=== PATIENT | female | born 1935 | race Caucasian/White ===

== ENCOUNTER 2016-04-16 08:51 | Emergency (ER) | payer MEDICARE, BC ==
[2016-04-16] MEDS ORDERED: ASPIRIN 81 MG TAB.CHEW PO ONE (09:22)
[2016-04-16] MEDS ORDERED: ASPIRIN 81 MG TAB.CHEW ONE (09:35)
[2016-04-16 09:37] LABS: Hematocrit 34.4 % (37.0-47.0); Hemoglobin 11.1 gm/dL (12.5-16.0); Mean Cell Volume 89.6 fl (78-100); Mean Corpuscular Hemoglobin 28.9 pg (27-31); Mean Corpuscular Hgb Conc 32.3 g/dl (32-36); Mean Platelet Volume 10.9 fl (6.0-9.5); Neutrophil # 3.6 K/mm3 (1.3-6.0); Neutrophil % 62.7 % (42-75.0); Platelet Count 213 K/mm3 (150-450); Red Blood Count 3.84 M/mm3 (4.2-5.4); Red Cell Distribution Width 13.1 % (11.5-14.0); White Blood Count 5.8 K/mm3 (4.0-10.5)
[2016-04-16 09:47] LABS: Prothrombin Time (Patient) 35.3 Seconds (9.4-11.4)
[2016-04-16 09:49] LABS: INR 3.39 INR (0.90-1.10)
[2016-04-16 09:55] LABS: Blood Urea Nitrogen 28 mg/dL (3-23); Glucose * 107 mg/dL (70-110)
[2016-04-16 09:56] LABS: ALT 16 U/L (19-67); AST 17 U/L (0-48); Alkaline Phosphatase * 65 U/L (50-170); Anion Gap 12.4 mmol/L (6.8-13.8); BUN/Creatinine Ratio 17.4 (9.0-21.6); Bilirubin, Total 0.4 mg/dL (0.0-1.1); Ca. Corrected For Albumin 8.9 mg/dL (8.4-10.2); Calcium * 9.2 mg/dL (7.9-10.9); Carbon Dioxide 27.4 mmol/L (24-32.6); Chloride 104 mmol/L (97-106); Potassium 4.8 mmol/L (3.4-4.6); Sodium 139 mmol/L (132-142); Total Protein 7.1 gm/dL (6.2-8.2); Troponin I Less than 0.017 ng/ml (0.00-0.10)
--- NOTE | 2016-04-16 10:22 | ERNOTE ---
Medical Problem HPI - Narrative Date of Service: 04/16/16 - General Chief Complaint: General Assessment Time Seen by Provider: 04/16/16 09:14 Source: patient, family Exam Limitations: no limitations - Immun/Allergies/Home Medications Immunizations: IMMUNIZATION HX Immunizations Up to Date Yes History of Influenza Vaccine No Hx Pneumococcal Vaccination Yes Allergies/Adverse Reactions: Allergies adhesive tape Adverse Reaction (Mild, Verified 04/16/16 08:59) Itching Home Medications: HOME MEDICATIONS Calcium Carbonate/Vitamin D3 [Calcium 600-Vit D3 200 Tablet] 1 each PO DAILY 05/29 [Last Taken Unknown] Metformin HCl [Metformin HCl ER] 1,000 mg PO BID 07/16/12 [Last Taken Unknown] Paroxetine HCl [Paxil] 40 mg PO DAILY 07/16/12 [Last Taken Unknown] Simvastatin [Zocor] 40 mg PO DAILY 07/16/12 [Last Taken Unknown] Beta-Carotene(A) W-C , E/Min [Ocuvite] 1 tab PO DAILY 11/08/13 [Last Taken Unknown] Cyanocobalamin (Vitamin B-12) [B-12] 500 mcg PO DAILY 12/23/14 [Last Taken Unknown] Metoprolol Tartrate [Lopressor] 200 mg PO BID 12/23/14 [Last Taken Unknown] Aspirin [Aspirin Chewable] 81 mg PO DAILY tab.chew 12/31/14 [Last Taken Unknown ] Fenofibrate [Lofibra] 48 mg PO DAILY 01/26/15 [Last Taken Unknown] Omeprazole 20 mg PO DAILY 04/16/16 [Last Taken Unknown] Warfarin Sodium [Coumadin] 1 mg PO DAILY #30 tablet 04/16/16 [Last Taken Unknown ] Warfarin Sodium [Coumadin] 2 mg PO DAILY #1 tablet 04/16/16 [Last Taken Unknown] - History of Present History Narrative: Going to [facility] today, walking into the [facility], she couldn't move her right leg forward for about 10 seconds, so she came by private vehicle to the ER. No further problems. Recent TIA with similar symptoms, but for a longer period of time. Is on coumadin daily. Timing: resolved prior to arrival Severity: mild Modifying Factors - (Improves): Present: other - nothing Modifying Factors - (Worsens): Present: other - nothing Review of Systems - Review of Systems Constitutional: Present: no symptoms reported EYE: Present: no symptoms reported ENT: Present: no symptoms reported Respiratory: Present: no symptoms reported Cardiology: Present: no symptoms reported Gastrointestinal/Abdominal: Present: no symptoms reported Genitourinary: Present: no symptoms reported Musculoskeletal: Present: no symptoms reported Skin: Present: no symptoms reported Neurological: Present: See HPI Endocrine: Present: no symptoms reported Hematologic/Lymphatic: Present: no symptoms reported Psych: Present: no symptoms reported All Other Systems: All systems neg except as marked - Patient's Past Medical History Patient History - Medical: Arthritis, Diabetes Type 2, GERD Patient History - Cardiac/Respiratory: Pulmonary Embolism, TIA Patient History - Cancer: No Hx of Cancer Patient History - Surgical Procedures: Appendectomy, Back Surgery, Hysterectomy - Family History Father Family History - Medical: Family History - Cardiac/Respiratory: CHF Mother Family History - Medical: Family History - Cardiac/Respiratory: No pertinent hx Children Family History - Medical: Diabetes Type 2 Family History - Cardiac/Respiratory: No pertinent hx - Social History Living Situations: home Does anyone smoke in the home?: No Smoking Status: Never smoker Have you smoked in the past 12 months: No Alcohol Use: none Drug Use: none Physical Exam - Physical Exam General Appearance: Present: wd/wn, alert, no apparent distress Eye Exam: Normal inspection: bilateral, PERRL: bilateral, EOMI: bilateral Ears, Nose, Throat: Present: normal ENT inspection, hearing grossly normal Neck: Present: normal inspection, nontender Respiratory: Present: no respiratory distress, normal breath sounds Cardiovascular/Chest: Present: regular rate, rhythm, no murmur Gastrointestinal/Abdominal: Present: normal bowel sounds, nontender, nondistended, soft, no organomegaly Back Exam: Present: normal inspection Extremity Exam: Present: normal inspection, pedal edema Neurological Exam: Present: alert, oriented, normal mood/affect, no motor/ sensory deficits Skin Exam: Present: normal color, warm/dry ED Progress - Results and Orders Patient's Lab Results:: I have reviewed the patient's lab results. - Vital Signs Patient's Vital Signs:: I have reviewed the patient's vital signs. Vital Signs: Vital Signs 04/16/16 08:55 Temperature 35.3 C L Pulse Rate 79 Respiratory 14 Rate Blood Pressure 156/84 O2 Sat by Pulse 98 Oximetry - CT/Ultrasound CT/Ultrasound Narrative: Had a brain MRI very recently - Progress/Reassessment Chief Complaint: General Assessment Departure - Departure Clinical Impression: Excessive anticoagulation TIA (transient ischemic attack) Qualifiers: Transient cerebral ischemia type: unspecified Qualified Code(s): G45.9 - Transient cerebral ischemic attack, unspecified Disposition: Home self-care Condition: Good Instructions: Transient Ischemic Attack, [id number] Additional Instructions: Keep your follow up appt with the neurologist next week. Prescriptions: Warfarin Sodium [Coumadin] 1 mg PO DAILY #30 tablet Warfarin Sodium [Coumadin] 2 mg PO DAILY #1 tablet
[2016-04-16 10:31] VITALS: BP 155/60
== END 2016-04-16 10:32 | disposition home or self-care (01) ==
LOC: ER 08:51
DX: G45.9 Transient cerebral ischemic attack, unspecified (principal); D68.59 Other primary thrombophilia; Z90.710 Acquired absence of both cervix and uterus

== ENCOUNTER 2016-07-05 18:33 | Emergency (ER) | payer MEDICARE, BC ==
[2016-07-05 18:41] VITALS: BP 136/69
--- OUTSIDE RECORDS SUMMARY | 2016-07-05 19:28 | XMS REPORT | Continuity of Care Document ---
:1935 Author Organization [facility] ([facility]) Address [address] [place] [address] Phone [phone] Care Team Providers Name Role Phone Kendall Echols Primary Care Provider [phone] Source Comments This disclosure is being made pursuant to the Care Everywhere program, applicable federal and state laws, and may not contain all informaitonavailable regarding this patient.[facility] ([facility]) Active Allergies and Adverse Reactions Allergen Noted Date Severity Reactions Comments Milk Containing Products Unknown No Known Allergies 01/27/2012 NO REACTION Non-Med Tape Pruritus baidaids Current Medications Prescription Sig. Disp. Refills Start Date End Date Status CALCIUM Take 2 Tabs by mouth Active CARBONATE/VITAMIN D3 2 times daily. (CALCIUM 600 + D PO) metFORMIN 1,000 mg Take 1,000 mg by Active tablet mouth 2 times daily with meals. Omeprazole 20 mg Take 20 mg by mouth Active TbEC daily. PARoxetine 40 mg Take 40 mg by mouth Active tablet daily. simvastatin 40 mg Take 40 mg by mouth Active tablet every evening. Vitamin A-Vitamin Take 1 Tab by mouth 2 Active C-Vit E-Min (VISION times daily. FORMULA) Tab cyanocobalamin Take 1,000 mcg by Active (VITAMIN B-12) 1,000 mouth daily. mcg tablet acetaminophen 325 mg Take 325 mg by mouth Active tablet every 4 hours as needed. fenofibrate 48 mg Take 48 mg by mouth Active tablet daily. NITROGLYCERIN place 1 Tab under the Active (NITROSTAT SL) tongue as needed. metoPROLol tartrate Take 200 mg by mouth Active 100 mg tablet 2 times daily. nitroglycerin 0.[address] 1 Tab under the 25 Tab 3 01/15/2014 Active SL tablet tongue every 5 minutes as needed for Chest pain. Indications: ANGINA enoxaparin 80 mg/0.8 inject 80 mg 4 Syringe 0 01/16/2014 Active mL injection syringe subcutaneously daily. Indications: ACUTE PULMONARY THROMBOEMBOLISM aspirin 81 mg EC Take 1 Tab by mouth 30 Tab 2 01/15/2014 Active tablet daily. Indications: MYOCARDIAL INFARCTION PREVENTION warfarin 2 mg tablet Take 1 Tab by mouth 30 Tab 2 01/15/2014 Active every evening. Indications: PULMONARY THROMBOEMBOLISM Active Problems Problem Noted Date Pulmonary embolism 01/12/2014 Diabetes mellitus 01/31/2012 HTN (hypertension) 01/31/2012 Seizure disorder 01/31/2012 Nephrolithiasis 01/31/2012 Resolved Problems Problem Noted Date Resolved Date Altered mental status 06/19/2006 01/12/2014 Most Recent Encounters Date Type Specialty Providers Description 04/25/2016 Office Visit [facility] Shayy Michaels MD Chief Comp: Patient Reported Reason For Visit Immunizations Name Dates Previously Given Next Due Influenza, unspecified 02/28/2006 Pneumococcal, unspecified 06/20/2006 Social History Tobacco Use Types Packs/Day Years Used Date Former Smoker Cigarettes Smokeless Tobacco: Never Used Tobacco Cessation:Counseling Given: Yes Comments: Alcohol Use Drinks/Week oz/Week Comments No Last Filed Vital Signs Vital Sign Reading Time Taken Blood Pressure 119/71 01/15/2014 11:30 AM CDT Pulse 74 01/15/2014 11:30 AM CDT Temperature 36.7 C (98.1 F) 01/15/2014 11:30 AM CDT Respiratory Rate 20 01/15/2014 11:30 AM CDT Height 1.549 m (5' 1") 01/12/2014 9:20 PM CDT Weight 82.1 kg (181 lb) 01/12/2014 9:20 PM CDT Body Mass Index 34.22 01/12/2014 9:20 PM CDT Oxygen Saturation 93% 01/15/2014 11:30 AM CDT Plan of Care Health Maintenance Due Date Last Done Comments Hepatitis B Vaccine (1 of 3 - Primary Series) 1935 Tdap Vaccine 11/05/1946 DIABETIC: Microalbumin 1954 Td Vaccine 1954 Mammogram 1976 Colonoscopy 1986 Zoster Vaccine 1996 Osteoporosis Screening (DXA Bone Density) 2001 Pneumococcal Vaccine (1 of 2 - PCV13) 2001 DIABETIC: Hemoglobin A1C 12/20/2006 06/19/2006 DIABETIC: Cholesterol 06/20/2007 06/19/2006 Diabetic: Hdl 06/20/2007 06/19/2006 Diabetic: Ldl 06/20/2007 06/19/2006 DIABETIC: Triglycerides 06/20/2007 06/19/2006 DIABETIC: Foot Exam 03/12/2012 DIABETIC: Retinal Eye Exam 03/12/2012 Influenza Vaccine: Seasonal (#1) 11/15/2015 02/28/2006 Results from Last 3 Months Not on file
--- NOTE | 2016-07-05 19:30 | ERNOTE ---
Lower Extremity HPI - General Lower Extremities Pain: foot: left - distal pain and swelling, ankle: left - lateral pain and swelling Time Seen by Provider: 07/05/16 19:21 Source: patient Exam Limitations: no limitations - Immun/Allergies/Home Medications Immunizations: IMMUNIZATION HX Immunizations Up to Date Yes History of Influenza Vaccine Yes Hx Pneumococcal Vaccination Yes Allergies/Adverse Reactions: Allergies Allergy/AdvReac Type Severity Reaction Status Date / Time adhesive tape AdvReac Mild Itching Verified 07/05/16 23:52 Home Medications: HOME MEDICATIONS Calcium Carbonate/Vitamin D3 [Calcium 600-Vit D3 200 Tablet] 1 each PO DAILY 05/29 [Last Taken 04/24/16 08:00] Metformin HCl [Metformin HCl ER] 500 mg PO BID 07/16/12 [Last Taken 04/24/16 08: 00] Paroxetine HCl [Paxil] 40 mg PO DAILY 07/16/12 [Last Taken 04/24/16 08:00] Simvastatin [Zocor] 40 mg PO DAILY 07/16/12 [Last Taken 04/24/16 08:00] Beta-Carotene(A) W-C , E/Min [Ocuvite] 1 tab PO BID 11/08/13 [Last Taken 08:00] Cyanocobalamin (Vitamin B-12) [B-12] 500 mcg PO DAILY 12/23/14 [Last Taken 04/24 08:00] Metoprolol Tartrate [Lopressor] 200 mg PO BID 12/23/14 [Last Taken 04/24/16 08: 00] Aspirin [Aspirin Chewable] 81 mg PO DAILY tab.chew 12/31/14 [Last Taken 08:00] Fenofibrate [Lofibra] 48 mg PO DAILY 01/26/15 [Last Taken 04/24/16 08:00] Omeprazole 20 mg PO DAILY 04/16/16 [Last Taken 04/24/16 08:00] Warfarin Sodium [Coumadin] 2.5 mg PO DAILY #1 tablet 04/16/16 [Last Taken 08:00] traMADol HCL [Ultram] 50 - 100 mg PO QID PRN #20 tab 07/05/16 [Last Taken Unknown] - History of Present Illness Narrative: Pt stepped on something causing her to twist her left ankle and foot. She believes she also twisted her left knee Occurred: just prior to arrival Location of Incident: home Method of Injury: Reports: twisted Reason for Fall: Reports: tripped Loss of Consciousness: Reports: no loss of consciousness Modifying Factors - (Improves): Reports: immobilization Modifying Factors - (Worsens): Reports: movement Associated Symptoms: Reports: unable to bear weight Other Injuries: Reports: none Review of Systems - Review of Systems Constitutional: Present: no symptoms reported EYE: Present: no symptoms reported ENT: Present: no symptoms reported Respiratory: Present: no symptoms reported Cardiology: Present: no symptoms reported Gastrointestinal/Abdominal: Present: no symptoms reported Genitourinary: Present: no symptoms reported Musculoskeletal: Present: See HPI. Absent: back pain Skin: Absent: rash, change in color Neurological: Present: no symptoms reported Endocrine: Present: no symptoms reported Hematologic/Lymphatic: Present: no symptoms reported Psych: Present: no symptoms reported - Patient's Past Medical History Patient History - Medical: Arthritis, Diabetes Type 2, GERD Patient History - Cardiac/Respiratory: Hypertension, Hyperlipidemia, TIA Patient History - Cancer: No Hx of Cancer Patient History - Surgical Procedures: Appendectomy, Back Surgery, Hysterectomy Patient History - Other: None LMP (females 10-50): Menopausal - Family History Father Family History - Medical: Family History - Cardiac/Respiratory: CHF Mother Family History - Medical: Family History - Cardiac/Respiratory: No pertinent hx Children Family History - Medical: Diabetes Type 2 Family History - Cardiac/Respiratory: No pertinent hx Family History - Cancer: No pertinent family hx - Social History Living Situations: home Abuse History: No History of abuse Psych History: No pertinent hx Does anyone smoke in the home?: No Smoking Status: Never smoker Alcohol Use: none Drug Use: none - Immunizations Immunizations Up to Date: Yes Hx Pneumococcal Vaccination: Yes History of Influenza Vaccine: Yes Physical Exam - Physical Exam General Appearance: Present: wd/wn, alert, no apparent distress Eye Exam: Normal inspection: bilateral Ears, Nose, Throat: Present: normal ENT inspection Neck: Present: normal inspection, supple Respiratory: Present: no respiratory distress, no accessory muscle use Peripheral Pulses: N=norm/S=strong/W=weak/B=bound/A=absent: Dorsalis-pedis (L): Normal Extremity Exam: Present: decreased range of motion - of left ankle in plantar flexion and eversion, joint swelling - lateral left maleolus and dorsal metatarsal 3+4 swelling. Neurological Exam: Present: alert, oriented, normal mood/affect, no motor/ sensory deficits Skin Exam: Present: normal color, warm/dry ED Progress - Vital Signs Patient's Vital Signs:: I have reviewed the patient's vital signs. 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 Non-displaced fx of the base of the 5th MT. degenerative changes, no dislocations X-Ray #3 X-Ray: ankle Interpretation: Reviewed by me X-ray Comments: Left: Fracture of the medial maleolus non-displaced, Fracture of the lateral maleolus tip- non-displaced. Fracture of the base of the 5th MT. - Progress/Reassessment Chief Complaint: Lower Extremity Pain/ Injury Progress:: Unchanged Progress Note-Subjective: 07/06/16 20:[address] Lujan in orthopedics he agrees with plan to splint foot and ankle and follow up in the clinic. He states the patient will follow up with Krystian DE LA TORRE on Sunday. Departure Clinical Impression: Ankle fracture, left Qualifiers: Encounter type: initial encounter Fracture type: closed Qualified Code(s): S82.892A - Other fracture of left lower leg, initial encounter for closed fracture Fracture of metatarsal bone of left foot Qualifiers: Encounter type: initial encounter Metatarsal bone: unspecified metatarsal Fracture type: closed Fracture alignment: displaced Qualified Code(s): S92.302A - Fracture of unspecified metatarsal bone(s), left foot, initial encounter for closed fracture - Departure Disposition: Home Follow Up Needed Condition: Fair Instructions: Ankle Fracture, [id number], Metatarsal Fracture Additional Instructions: do not put any weight on the foot. Take pain medications as needed. Call orthopedics in the morning to get an appointment for Sunday Referrals: Kendall Echols MD [Primary Care Provider] - Krystian Renae PAC [[facility]] - Prescriptions: traMADol HCL [Ultram] 50 - 100 mg PO QID PRN #20 tab PRN Reason: Pain
[2016-07-05] MEDS ORDERED: traMADol HCL 50 MG TABLET PO ONE (20:01)
[2016-07-05] MEDS ORDERED: traMADol HCL 50 MG TABLET ONE (20:38)
== END 2016-07-05 20:44 | disposition home or self-care (01) ==
LOC: ER 18:33
PROC: 2W3RX1Z Immobilization of Left Lower Leg using Splint (ICD-10-PCS; principal; 2016-07-05)
DX: S82.892A Other fracture of left lower leg, initial encounter for closed fracture (principal); S92.302A Fracture of unspecified metatarsal bone(s), left foot, initial encounter for closed fracture; W18.31XA Fall on same level due to stepping on an object, initial encounter; Z91.81 History of falling; Y93.9 Activity, unspecified; Y92.009 Unspecified place in unspecified non-institutional (private) residence as the place of occurrence of the external cause; Y99.9 Unspecified external cause status

== ENCOUNTER 2016-07-05 23:23 | Emergency (ER) | payer MEDICARE, BC ==
--- OUTSIDE RECORDS SUMMARY | 2016-07-06 00:44 | XMS REPORT | Continuity of Care Document ---
:1935 Author Organization [facility] ([facility]) Address [address] [place] [address] Phone [phone] Care Team Providers Name Role Phone Kendall Echols Primary Care Provider [phone] Source Comments This disclosure is being made pursuant to the Care Everywhere program, applicable federal and state laws, and may not contain all informaitonavailable regarding this patient.[facility] ([facility]) Active Allergies and Adverse Reactions Allergen Noted [...]
[2016-07-06] MEDS ORDERED: traMADol HCL 50 MG TABLET PO ONE (01:17)
[2016-07-06] MEDS ORDERED: traMADol HCL 50 MG TABLET ONE (01:18)
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
[2016-07-06 01:27] VITALS: BP 143/76
== END 2016-07-06 01:26 | disposition home or self-care (01) ==
LOC: ER 23:23
DX: S00.03XA Contusion of scalp, initial encounter (principal); W10.2XXA Fall (on)(from) incline, initial encounter; Z91.81 History of falling; Y93.9 Activity, unspecified; Y92.007 Garden or yard of unspecified non-institutional (private) residence as the place of occurrence of the external cause; Y99.9 Unspecified external cause status

== ENCOUNTER 2016-07-10 15:53 | Observation (INO) | payer MEDICARE, BC ==
[2016-07-10 16:23] LABS: Hematocrit 33.4 % (37.0-47.0); Hemoglobin 10.8 gm/dL (12.5-16.0); Mean Cell Volume 89.1 fl (78-100); Mean Corpuscular Hemoglobin 28.8 pg (27-31); Mean Corpuscular Hgb Conc 32.3 g/dl (32-36); Mean Platelet Volume 11.2 fl (6.0-9.5); Neutrophil # 4.5 K/mm3 (1.3-6.0); Platelet Count 314 K/mm3 (150-450); Red Blood Count 3.75 M/mm3 (4.2-5.4); Red Cell Distribution Width 13.9 % (11.5-14.0); White Blood Count 6.4 K/mm3 (4.0-10.5)
[2016-07-10 16:34] LABS: ALT 14 U/L (19-67); AST 21 U/L (0-48); Albumin * 3.2 gm/dl (3.4-5.0); Alkaline Phosphatase * 93 U/L (50-170); Anion Gap 19.5 mmol/L (6.8-13.8); BUN/Creatinine Ratio 18.7 (9.0-21.6); Bilirubin, Total 0.3 mg/dL (0.0-1.1); Blood Urea Nitrogen 42 mg/dL (3-23); Ca. Corrected For Albumin 9.1 mg/dL (8.4-10.2); Calcium * 8.8 mg/dL (7.9-10.9); Carbon Dioxide 22.5 mmol/L (24-32.6); Chloride 99 mmol/L (97-106); Glucose * 179 mg/dL (70-110); Sodium 137 mmol/L (132-142); Troponin I Less than 0.017 ng/ml (0.00-0.10)
--- NOTE | 2016-07-10 17:50 | ERNOTE ---
Chest Pain/Cardiac HPI Date of Service: 07/10/16 Chief Complaint: Chest Pain Source: patient Exam Limitations: no limitations Immunizations: IMMUNIZATION HX Immunizations Up to Date Yes History of Influenza Vaccine Yes Hx Pneumococcal Vaccination Yes Allergies/Adverse Reactions: Allergies adhesive tape Adverse Reaction (Mild, Verified 07/10/16 16:33) Itching Home Medications: HOME MEDICATIONS Calcium Carbonate/Vitamin D3 [Calcium 600-Vit D3 200 Tablet] 1 each PO DAILY 05/29 [Last Taken 04/24/16 08:00] PARoxetine HCL [Paxil] 40 mg PO DAILY 07/16/12 [Last Taken 04/24/16 08:00] Simvastatin [Zocor] 40 mg PO DAILY 07/16/12 [Last Taken 04/24/16 08:00] metFORMIN HCL [Metformin HCl ER] 500 mg PO BID 07/16/12 [Last Taken 04/24/16 08: 00] Beta-Carotene(A) W-C , E/Min [Ocuvite] 1 tab PO BID 11/08/13 [Last Taken 08:00] Cyanocobalamin (Vitamin B-12) [B-12] 500 mcg PO DAILY 12/23/14 [Last Taken 04/24 08:00] Metoprolol Tartrate [Lopressor] 200 mg PO BID 12/23/14 [Last Taken 04/24/16 08: 00] Aspirin [Aspirin Chewable] 81 mg PO DAILY tab.chew 12/31/14 [Last Taken 08:00] Omeprazole 20 mg PO DAILY 04/16/16 [Last Taken 04/24/16 08:00] Warfarin Sodium [Coumadin] 2.5 mg PO DAILY #1 tablet 04/16/16 [Last Taken 08:00] traMADol HCL [Ultram] 50 - 100 mg PO QID PRN #20 tab 07/05/16 [Last Taken Unknown] Albuterol Sulfate [Proair Respiclick] 90 mcg IH Q4H PRN 07/10/16 [Last Taken Unknown] Gemfibrozil [Lopid] 600 mg PO BID 07/10/16 [Last Taken Unknown] Warfarin Sodium [Coumadin] 5 mg PO 07/10/16 [Last Taken Unknown] Narrative: 80-year-old female presenting to the emergency room for chest pain. Patient states chest pain started about 2:00pm after her bath and it has continued. Patient describes 2 forms of chest pain she has rib pain that goes underneath her breasts and around her back. Then also she had a brief moment of severe sudden sternal left-sided chest pain that made her short of breath. Patient is no longer short of breath. But she does have chest pain underneath her billateral breast along her ribs. Patient fell on 07/05/2016 and broke her left leg. She has a left leg cast and has had decreased mobility. Date (Duration): 07/10/16 Timing: constant Severity/Quality: mild, pressure Location: substernal, left chest Chest Pain Radiation: no radiation Activities at Onset: none Modifying Factors - Improves: Present: nothing Modifying Factors - Worsens: Present: movement Associated Symptoms: Present: shortness of breath - around 2pm Prior Chest Pain/Cardiac Workup: Reports: pulmonary embolism Review of Systems - Review of Systems Constitutional: Present: no symptoms reported EYE: Present: no symptoms reported ENT: Present: no symptoms reported Respiratory: Present: See HPI, shortness of breath Cardiology: Present: See HPI, chest pain Gastrointestinal/Abdominal: Present: no symptoms reported Genitourinary: Present: no symptoms reported Musculoskeletal: Present: no symptoms reported, See HPI Skin: Present: no symptoms reported Neurological: Present: no symptoms reported Endocrine: Present: no symptoms reported Hematologic/Lymphatic: Present: no symptoms reported Psych: Present: no symptoms reported - Patient's Past Medical History Patient History - Medical: Arthritis, Diabetes Type 2, GERD, Other - hx of PE Patient History - Cardiac/Respiratory: Hypertension, Hyperlipidemia, TIA Patient History - Cancer: No Hx of Cancer Patient History - Surgical Procedures: Appendectomy, Back Surgery, Hysterectomy Patient History - Other: None LMP (females 10-50): Menopausal - Family History Father Family History - Medical: Family History - Cardiac/Respiratory: CHF Mother Family History - Medical: Family History - Cardiac/Respiratory: No pertinent hx Children Family History - Medical: Diabetes Type 2 Family History - Cardiac/Respiratory: No pertinent hx Family History - Cancer: No pertinent family hx - Social History Living Situations: home Abuse History: No History of abuse Psych History: No pertinent hx Does anyone smoke in the home?: No Alcohol Use: none Drug Use: none - Immunizations Immunizations Up to Date: Yes Hx Pneumococcal Vaccination: Yes History of Influenza Vaccine: Yes Physical Exam - Physical Exam Narrative: This pleasant 80-year-old female presented today with chest pain. Patient states at 2 PM today she had substernal chest pain that made her very short of breath and she had a lot of chest pressure. That has since dissipated she continues to complain of chest pain under her bilateral breasts that goes around her back. Patient is tender to this area upon palpation. Patient states that she did fall on 07/05/2016 landing on her back with that RESULTED in the left leg fracture. General Appearance: Present: wd/wn, alert Eye Exam: Normal inspection: bilateral Ears, Nose, Throat: Present: normal ENT inspection, tonsillar swelling Respiratory: Present: no respiratory distress, chest tenderness Cardiovascular/Chest: Present: regular rate, rhythm Peripheral Pulses: N=norm/S=strong/W=weak/B=bound/A=absent: Dorsalis-pedis (R): Normal, Dorsalis-pedis (L): Normal Gastrointestinal/Abdominal: Present: normal bowel sounds, nontender Extremity Exam: Present: normal except - - left leg casted Neurological Exam: Present: alert, oriented, normal mood/affect Skin Exam: Present: normal color Lymphatic Exam: Present: no adenopathy ED Progress - Results and Orders Patient's Lab Results:: I have reviewed the patient's lab results. Results and Orders: elevated Podiatric Technician 2.25, elevated d-dimer 3.4 and BNP over 1000. - Vital Signs Vital Signs: Vital Signs 07/10/16 07/10/16 16:30 17:01 Temperature 36.4 C L Pulse Rate 78 78 Respiratory 16 16 Rate Blood Pressure 122/67 125/68 O2 Sat by Pulse 93 93 Oximetry - X-Ray X-Ray #1 X-Ray: chest Interpretation: Reviewed by me X-ray Comments: TECHNIQUE: PA and lateral views of the chest were obtained. 2 images. COMPARISONS: 07/22/2014 FINDINGS: Chest PA Lateral * Hyperinflated lung volumes. No consolidation or mass. Central bronchial wall prominence noted. Calcified granuloma of the right lung base noted. No pneumothorax or pleural fluid collections. Cardiac and mediastinal silhouettes are normal. Trachea is in normal position. Bones are normal. IMPRESSION: Findings compatible with acute or chronic bronchitis versus reactive airways disease. Electronically signed by Adele Zavala M.D.. - Progress/Reassessment Chief Complaint: Chest Pain Progress:: Improved Plan - Plan Plan: Spoke with hospitalist regarding admission. They suggested to do a ultrasound of patient's right leg. Patient is unable to have a CT related to her elevated creatinine. Awaiting results of her ultrasound before admission as process Departure - Departure Clinical Impression: Shortness of breath Disposition: [facility] Condition: Stable
--- OUTSIDE RECORDS SUMMARY | 2016-07-10 18:03 | XMS REPORT | Continuity of Care Document ---
:1935 Author Organization [facility] ([facility]) Address [address] [place] [address] Phone [phone] Care Team Providers Name Role Phone Kendall Echols Primary Care Provider [phone] Source Comments This disclosure is being made pursuant to the Care Everywhere program, applicable federal and state laws, and may not contain all informaitonavailable regarding this patient.[facility] ([facility]) Active Allergies and Adverse Reactions Allergen [...] Visit [facility] Shayy Michaels MD Immunizations Name Dates Previously Given Next Due [...]
[2016-07-10] MEDS ORDERED: HEPARIN SODIUM,PORCINE 5,000 UNITS/ML VIAL IV ONE (21:51)
--- OUTSIDE RECORDS SUMMARY | 2016-07-10 22:06 | XMS REPORT | Continuity of Care Document ---
:1935 Author Organization [facility] ([facility]) Address [address] [place] [address] Phone [phone] Care Team Providers Name Role Phone Kendall Echols Primary Care Provider [phone] Source Comments This disclosure is being made pursuant to the Care Everywhere program, applicable federal and state laws, and may not contain all informaitonavailable regarding this patient.[facility] ([facility]) Active Allergies and Adverse Reactions Allergen Noted [...]
[2016-07-10 23:17] LABS: INR Greater than 9.60 INR (0.90-1.10); Partial Thrombolplastin Time 71.6 Seconds (24-32)
--- NOTE | 2016-07-11 00:04 | HP ---
Chief Complaint - Chief Complaint Date of Service: 07/11/16 Time of Service: 00:04 Chief Complaint: "SOB, Chest Pain". Source of HPI- Pt; reliable, ER provider report, pt's EMR. History of Present Illness: Ms. Jones is a 80-yr-old [place] pt of Dr. Onesimo Argueta, with a PMH: A-fib, CAD, COPD, DM II, GERD, HTN, HLD, Factor V leiden- heterozygous, Osteoarthritis , Spinal Stenosis. Pt states that some time at 3pm today, she suddenly developed chest pain and SOB. She states that the pain was along her LT rib cage , was aching in nature, but the SOB is what worried her the most. She states that one year ago, she was found to have blood clots in the Lung and the type of SOB she had today was similar to that event. During evaluation at the ED, she was found to have an elevated D-dimer of 3.41. Follow up CT of the Chest to rule out Pulmonary Embolism could not be obtained due to contraindication with elevated creatinine and pt's level was 2.25. Her coagulation studies showed she had a supratheraputic INR of 9.6. Off note, she fell on 07/05/16 and sustained a non- displaced fracture of the LT ankle. Ortho was consulted by the ERP & the plan was to splint the extremity and the pt was to would follow- up on Sunday. It appears that the foot was casted on that visit. A venous duplex done at the ED tonight on the RT foot was negative for DVT. Unable to obtain the duplex on the LT due to the cast on it. VQ scan could not be done tonight as well. She will be admitted under observation due to signs of Pulmonary Emboli/ DVT and will require additional imaging to rule out. - Patient's Past Medical History Patient History - Medical: Arthritis, Diabetes Type 2, GERD, Other Patient History - Cardiac/Respiratory: Atrial Fibrillation, Coronary Heart Disease, COPD, Hypertension, Hyperlipidemia, TIA Patient History - Cancer: No Hx of Cancer Patient History - Surgical Procedures: Appendectomy, Back Surgery, Hysterectomy Patient History - Other: None LMP (females 10-50): Menopausal - Family History Father Family History - Medical: Family History - Cardiac/Respiratory: CHF Family History - Cancer: Colon Mother Family History - Medical: Family History - Cardiac/Respiratory: No pertinent hx Family History - Cancer: Colon Children Family History - Medical: Diabetes Type 2 Family History - Cardiac/Respiratory: No pertinent hx Family History - Cancer: No pertinent family hx - Social History Living Situations: significant other Abuse History: No History of abuse Psych History: No pertinent hx Does anyone smoke in the home?: No Smoking Status: Never smoker Have you smoked in the past 12 months: No Do you dip or chew tobacco: No Alcohol Use: none Drug Use: none - Immunizations Immunizations Up to Date: Yes Hx Pneumococcal Vaccination: Yes History of Influenza Vaccine: Yes Review Of Systems (GEN) - Review of Systems Generalized/Overall Review: Absent: Weakness, Chills, Fever EENTM: Absent: Eye Pain, Blurred Vision, Throat Pain Respiratory: Present: Shortness of Breath. Absent: Cough, Stridor, Wheezing Cardiac: Present: Chest Pain. Absent: Syncope Abdominal: Absent: Nausea, Vomiting Genitourinary: Absent: Burning, Itching, Frequency Musculoskeletal: Absent: Joint Pain, Back Pain Neurological: Absent: Headache, Anxiety, Depressed Skin: Absent: Lesions, Bruising Endocrine: Absent: Intolerance to Cold, Increased Thirst Misc: All systems neg except as marked Immunizations: IMMUNIZATION HX Immunizations Up to Date Yes History of Influenza Vaccine Yes Hx Pneumococcal Vaccination Yes Allergies/Adverse Reactions: Allergies Allergy/AdvReac Type Severity Reaction Status Date / Time adhesive tape AdvReac Mild Itching Verified 07/10/16 16:33 Home Medications: HOME MEDICATIONS PARoxetine HCL [Paxil] 40 mg PO DAILY 07/16/12 [Last Taken 04/24/16 08:00] Simvastatin [Zocor] 40 mg PO DAILY 07/16/12 [Last Taken 04/24/16 08:00] Beta-Carotene(A) W-C , E/Min [Ocuvite] 1 tab PO BID 11/08/13 [Last Taken 08:00] Cyanocobalamin (Vitamin B-12) [B-12] 1,000 mcg PO QAM 12/23/14 [Last Taken 04/24 08:00] Metoprolol Tartrate [Lopressor] 200 mg PO BIDWM 12/23/14 [Last Taken 04/24/16 08 :00] Omeprazole 20 mg PO DAILY 04/16/16 [Last Taken 04/24/16 08:00] traMADol HCL [Ultram] 50 - 100 mg PO QID PRN #20 tab 07/05/16 [Last Taken Unknown] Albuterol Sulfate [Proair Respiclick] 90 mcg IH Q4H PRN 07/10/16 [Last Taken Unknown] Gemfibrozil [Lopid] 600 mg PO BID 07/10/16 [Last Taken Unknown] Warfarin Sodium [Coumadin] 5 mg PO WESA 07/10/16 [Last Taken Unknown] Aspirin [Aspirin Chewable] 81 mg PO QAM 07/11/16 [Last Taken Unknown] Calcium Carbonate/Vitamin D3 [Calcium 600-Vit D3 800 Tablet] 1 each PO BID 07/11 [Last Taken Unknown] Warfarin Sodium [Coumadin] 2.5 mg PO SUMOTUTHFR 07/11/16 [Last Taken Unknown] metFORMIN HCL [Glucophage] 500 mg PO BIDWM 07/11/16 [Last Taken Unknown] Exam - Exam Vital Signs: Vital Signs - Last Taken Temp 36.1 C L 07/10/16 23:25 Pulse 79 07/10/16 23:25 Resp 22 H 07/10/16 23:25 BP 154/70 07/10/16 23:25 Pulse Ox 93 07/10/16 23:25 Constitutional: Present: Alert, Oriented x3, Cooperative, No distress ENT Exam: Present: normal ENT inspection, hearing grossly normal, moist mucous membranes Eye Exam: bilateral eye: normal inspection, PERRL Neck: Present: full range of motion, supple, normal inspection Back Exam: Present: no CVA tenderness Breasts: Present: Exam deferred Respiratory: Present: lungs clear, no accessory muscle use Cardiovascular/Chest: Present: normal peripheral pulses, regular rate, rhythm, no chest tenderness Abdomen: Present: Normal bowel sounds, soft, nontender /Rectal: Present: Exam deferred Extremity: Present: normal range of motion, non-tender, other - Cast on LLE- Skin Exam: Present: warm/dry, no cyanosis Lymphatic: Present: no adenopathy Neurologic: Present: alert, normal mood/affect, oriented x 3 Appearance: Present: appropriate appearance, appropriate insight Eye contact: Present: cooperative, good eye contact, normal speech Thoughts: Present: normal thought pattern, no apparent hallucination Diagnostic Studies: Laboratory Results WBC 6.4 K/mm3 (4.0-10.5) 07/10/16 16:08 RBC 3.75 M/mm3 (4.2-5.4) L 07/10/16 16:08 Hgb 10.8 gm/dL (12.5-16.0) L 07/10/16 16:08 Hct 33.4 % (37.0-47.0) L 07/10/16 16:08 MCV 89.1 fl (78-100) 07/10/16 16:08 MCH 28.8 pg (27-31) 07/10/16 16:08 MCHC 32.3 g/dl (32-36) 07/10/16 16:08 RDW 13.9 % (11.5-14.0) 07/10/16 16:08 Plt Count 314 K/mm3 (150-450) 07/10/16 16:08 MPV 11.2 fl (6.0-9.5) H 07/10/16 16:08 Immature Gran % (Auto) 0.60 % (0.001-0.429) H 07/10/16 16:08 Immature Gran # (Auto) 0.04 K/mm3 (0.000-0.0310) H 07/10/16 16:08 Neutrophils % 70.0 % (42-75.0) 07/10/16 16:08 Lymphocytes % 14.8 % (20-51) L 07/10/16 16:08 Monocytes % 13.7 % (0.0-9) H 07/10/16 16:08 Eosinophils % 0.6 % (0.0-3.0) 07/10/16 16:08 Basophils % 0.3 % (0.0-1.0) 07/10/16 16:08 Nucleated RBC % 0.0 k/mm3 (0-1) 07/10/16 16:08 Neutrophils # 4.5 K/mm3 (1.3-6.0) 07/10/16 16:08 Lymphocytes # 1.0 k/mm3 (1.5-3.5) L 07/10/16 16:08 Monocytes # 0.9 k/mm3 (0.0-1.0) 07/10/16 16:08 Eosinophils # 0.0 k/mm3 (0.0-0.7) 07/10/16 16:08 Absolute Basophils 0.0 k/mm3 (0.0-0.1) 07/10/16 16:08 PT Greater than 100.0 Seconds (9.4-11.4) H 07/10/16 16:08 INR (Anticoag Therapy) Greater than 9.60 INR (0.90-1.10) H* 07/10/16 16:08 PTT (Taisha) 71.6 Seconds (24-32) H 07/10/16 16:08 D-Dimer 3.41 mg/L (0.19-0.49) H 07/10/16 16:08 Sodium 137 mmol/L (132-142) 07/10/16 16:08 Plasma Sodium 138 mmol/L (130-142) 07/10/16 16:08 Potassium 4.0 mmol/L (3.4-4.6) 07/10/16 16:08 Chloride 99 mmol/L (97-106) 07/10/16 16:08 Carbon Dioxide 22.5 mmol/L (24-32.6) L 07/10/16 16:08 Anion Gap 19.5 mmol/L (6.8-13.8) H 07/10/16 16:08 BUN 42 mg/dL (3-23) H 07/10/16 16:08 Creatinine 2.25 mg/dL (0.4-1.4) H D 07/10/16 16:08 Est GFR (Non-Af Amer) 22 mL/min (60-130) L D 07/10/16 16:08 BUN/Creatinine Ratio 18.7 (9.0-21.6) 07/10/16 16:08 Random Glucose 179 mg/dL (70-110) H 07/10/16 16:08 Calcium 8.8 mg/dL (7.9-10.9) 07/10/16 16:08 Calcium Adj for Albumin 9.1 mg/dL (8.4-10.2) 07/10/16 16:08 Total Bilirubin 0.3 mg/dL (0.0-1.1) 07/10/16 16:08 AST 21 U/L (0-48) 07/10/16 16:08 ALT 14 U/L (19-67) L 07/10/16 16:08 Alkaline Phosphatase 93 U/L (50-170) 07/10/16 16:08 Troponin I Less than 0.017 ng/ml (0.00-0.10) 07/10/16 16:08 B-Natriuretic Peptide 1088 pg/mL (5-550) H 07/10/16 16:08 Total Protein 8.0 gm/dL (6.2-8.2) 07/10/16 16:08 Albumin 3.2 gm/dl (3.4-5.0) L 07/10/16 16:08 Assessment/Plan - Assessment/Plan (1) Shortness of breath Assessment: The chest x-ray was negative for pneumonia. Unable to obtain CT scan due to contraindication with elevated creatinine. She had elevated D-Dimer and SOB and will need a VQ scan in am to rule out Pulmonary Embolism, even though the chances of it is limited due to pt's overcoagulation with Coumadin. Problem: Acute (2) Chest pain Assessment: The EKG and troponin obtained at the ED was negative for ACS/IN Will monitor additional troponin and repeat EKG. Problem: Acute (3) Ankle fracture, left Assessment: There is concern for DVT due to pt's presenting symptoms. She has a cast on the LT extremity and will need a venous duplex to rule out dvt. Will consult Ortho in am to remove the casting so that we can perform imaging in am. Problem: Acute Qualifiers: Encounter type: initial encounter Fracture type: closed Qualified Code(s) : S82.892A - Other fracture of left lower leg, initial encounter for closed fracture (4) Supratherapeutic international normalized ratio (INR) Assessment: INR of 9.6 and repeat lab was also the same. Will hold Coumadin for now. Vitamin K not necessary as she has no signs of bleeding and there is no expected surgery. Problem: Acute (5) Acute kidney injury superimposed on chronic kidney disease Assessment: Will hydrate with IVF. Check BMP in am. Problem: Acute
[2016-07-11] MEDS: HYDROcodone/ACETAMINOPHEN 1 EACH TABLET PO PRN ×2 (01:14→21:02)
[2016-07-11] MEDS ORDERED: traMADol HCL 50 MG TABLET PO PRN (03:48)
[2016-07-11] MEDS ORDERED: NORMAL SALINE 1,000 ML IV PRN ×2 (03:48→06:28)
[2016-07-11] MEDS ORDERED: ALBUTEROL SULFATE 60 PUFF INHALER IH PRN ×2 (04:29→12:30)
[2016-07-11 05:24] LABS: Anion Gap 16.4 mmol/L (6.8-13.8); BUN/Creatinine Ratio 20.8 (9.0-21.6); Blood Urea Nitrogen 40 mg/dL (3-23); Calcium * 8.9 mg/dL (7.9-10.9); Carbon Dioxide 24.6 mmol/L (24-32.6); Chloride 101 mmol/L (97-106); Glucose * 152 mg/dL (70-110); Sodium 138 mmol/L (132-142); Troponin I Less than 0.017 ng/ml (0.00-0.10)
[2016-07-11] MEDS ORDERED: PANTOPRAZOLE SODIUM 20 MG TABLET.DR PO SCH (07:00)
--- NOTE | 2016-07-11 08:59 | PN ---
Subjective - Date and Time Seen Date: 07/11/16 Time: 08:50 Subjective Narrative: Complaining of low sternal pain that comes single;not SOB Objective - Review of Systems Generalized/Overall Review: Reports: No Symptoms Reported EENTM: Reports: No Symptoms Reported Respiratory: Reports: No Symptoms Reported Cardiac: Reports: Chest Pain Abdominal: Reports: No Symptoms Reported Genitourinary Symptoms: Reports: No Symptoms Reported Musculoskeletal Complaints: Reports: No Symptoms Reported Skin: Reports: No Symptoms Reported - Vitals Vitals: Last Vital Signs Temp 36.4 C L 07/11/16 06:35 Pulse 80 07/11/16 06:35 Resp 18 07/11/16 06:35 BP 144/74 07/11/16 06:35 Pulse Ox 95 07/11/16 06:35 - Abnormal Lab Findings Abnormal Lab Findings: Abnormal Lab Results 07/11/16 Range/Units 04:50 Anion Gap 16.4 H (6.8-13.8) mmol/L BUN 40 H (3-23) mg/dL Creatinine 1.92 H (0.4-1.4) mg/dL Est GFR (Non-Af Amer) 27 L D (60-130) mL/min Random Glucose 152 H (70-110) mg/dL - Exam Constitutional: Present: Alert, Oriented x3, Cooperative Respiratory: Present: lungs clear, normal breath sounds Cardiovascular/Chest: Present: regular rate, rhythm Abdomen: Present: soft, nontender Extremity: Present: no pedal edema, other - Left leg with below the knee cast Skin Exam: Present: normal color 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 tested Appearance: Present: appropriate appearance Assessment/Plan Plan Narrative: I doubt very much pulmonary emboli because of markedly prolonged INR I'm more concerned with coronary artery disease therefore will order pharmacological stress test, lung ultrasound and echocardiogram - Problems/Diagnosis (1) Chest pain Problem: Acute Qualifiers: Chest pain type: chest pain on breathing Qualified Code(s): R07.1 - Chest pain on breathing (2) Ankle fracture, left Problem: Acute Qualifiers: Encounter type: initial encounter Fracture type: closed Qualified Code(s) : S82.892A - Other fracture of left lower leg, initial encounter for closed fracture (3) Supratherapeutic international normalized ratio (INR) Problem: Acute Narrative: No evidence of bleeding stop Coumadin (4) CRF (chronic renal failure) Problem: Chronic Qualifiers: Chronic kidney disease stage: stage 4 (severe) Qualified Code(s): N18.4 - Chronic kidney disease, stage 4 (severe)
[2016-07-11] MEDS ORDERED: GEMFIBROZIL 600 MG TABLET PO SCH (09:00)
[2016-07-11] MEDS ORDERED: metFORMIN HCL 500 MG TABLET PO SCH (09:00)
[2016-07-11] MEDS ORDERED: SIMVASTATIN 40 MG TABLET PO SCH ×2 (09:00→21:00)
[2016-07-11] MEDS: BETA-CAROTENE(A) W-C , E/MIN 1 TAB TABLET PO SCH ×2 (09:20→20:55)
[2016-07-11] MEDS: CALCIUM CARBONATE/VITAMIN D3 1 TAB TABLET PO SCH ×2 (09:20→20:55)
[2016-07-11] MEDS: METOPROLOL TARTRATE 100 MG TABLET PO SCH ×2 (09:20→16:08)
[2016-07-11] MEDS: ASPIRIN 81 MG TAB.CHEW PO SCH (09:21)
[2016-07-11] MEDS: CYANOCOBALAMIN 1,000 MCG TABLET PO SCH (09:21)
[2016-07-11] MEDS: PARoxetine HCL 20 MG TABLET PO SCH (09:21)
[2016-07-12 06:15] LABS: INR 2.6 INR (0.90-1.10)
[2016-07-12] MEDS ORDERED: PANTOPRAZOLE SODIUM 40 MG TABLET.EC PO SCH (07:00)
--- NOTE | 2016-07-12 09:38 | ECHO ---
This report is available in the EMR
[2016-07-12] MEDS: CYANOCOBALAMIN 1,000 MCG TABLET PO SCH (09:42)
[2016-07-12] MEDS: BETA-CAROTENE(A) W-C , E/MIN 1 TAB TABLET PO SCH (09:42)
[2016-07-12] MEDS: CALCIUM CARBONATE/VITAMIN D3 1 TAB TABLET PO SCH (09:42)
[2016-07-12] MEDS: METOPROLOL TARTRATE 100 MG TABLET PO SCH (09:43)
[2016-07-12] MEDS: PARoxetine HCL 20 MG TABLET PO SCH (09:43)
[2016-07-12] MEDS: ASPIRIN 81 MG TAB.CHEW PO SCH (09:43)
[2016-07-12 11:34] VITALS: BP 139/61
--- NOTE | 2016-07-12 12:58 | DS ---
(1) Chest pain Problem: Acute Qualifiers: Chest pain type: chest pain on breathing Qualified Code(s): R07.1 - Chest pain on breathing (2) Ankle fracture, left Problem: Chronic Qualifiers: Encounter type: initial encounter Fracture type: closed Qualified Code(s) : S82.892A - Other fracture of left lower leg, initial encounter for closed fracture (3) Supratherapeutic international normalized ratio (INR) Problem: Acute (4) CRF (chronic renal failure) Problem: Chronic Qualifiers: Chronic kidney disease stage: stage 4 (severe) Qualified Code(s): N18.4 - Chronic kidney disease, stage 4 (severe) Description of Stay: 80-year-old white female was admitted through the emergency room because of chest pain over the lower sternum now and bilateral anterior chest wall pain get worst on taking a deep breath. Chest x-ray is nondiagnostic. D-dimer is markedly elevated at 3.4 INR markedly elevated at 9 ultrasound venogram of both legs were negative. Echocardiogram showed pulmonary hypertension. VQ scan was described as low probability for PE. On the day of discharge patient is feeling and breathing better Procedures Performed: none Discharge Disposition: Home self care Disposition: Home self-care Condition: Fair Discharge Activity: Activity as tolerated Discharge Diet: Consistent carbs Referrals: Kendall Echols MD [Primary Care Provider] - Additional Patient Instructions (free text): TCM appointment at discharge. Call [phone] when discharged. Follow up with Dr. Echols in 1 week Complete Home Medications List: Complete Home Medication List: PARoxetine HCL [Paxil] 40 mg PO DAILY 07/16/12 Simvastatin [Zocor] 40 mg PO DAILY 07/16/12 Beta-Carotene(A) W-C , E/Min [Ocuvite] 1 tab PO BID 11/08/13 Cyanocobalamin (Vitamin B-12) [B-12] 1,000 mcg PO QAM 12/23/14 Metoprolol Tartrate [Lopressor] 200 mg PO BIDWM 12/23/14 Omeprazole 20 mg PO DAILY 04/16/16 traMADol HCL [Ultram] 50 - 100 mg PO QID PRN #20 tab 07/05/16 Albuterol Sulfate [Proair Respiclick] 90 mcg IH Q4H PRN 07/10/16 Aspirin [Aspirin Chewable] 81 mg PO QAM 07/11/16 Calcium Carbonate/Vitamin D3 [Calcium 600-Vit D3 800 Tablet] 1 each PO BID 07/11 metFORMIN HCL [Glucophage] 500 mg PO BIDWM 07/11/16 Warfarin Sodium [Coumadin] 2.5 mg PO DAILY@1700 tablet 07/12/16
[2016-07-12] MEDS ORDERED: WARFARIN SODIUM 2.5 MG TABLET PO SCH (17:00)
== END 2016-07-12 14:00 | disposition home or self-care (01) ==
LOC: ER 15:53 → MS 22:02
PROVIDERS: ADMIT Nurse Practitioner; ATTEND Internal Medicine
DX: R07.1 Chest pain on breathing (principal); S82.52XD Displaced fracture of medial malleolus of left tibia, subsequent encounter for closed fracture with routine healing; E11.9 Type 2 diabetes mellitus without complications; K21.9 Gastro-esophageal reflux disease without esophagitis; I48.2 Chronic atrial fibrillation; M19.90 Unspecified osteoarthritis, unspecified site; J44.9 Chronic obstructive pulmonary disease, unspecified; I25.10 Atherosclerotic heart disease of native coronary artery without angina pectoris; I12.9 Hypertensive chronic kidney disease with stage 1 through stage 4 chronic kidney disease, or unspecified chronic kidney disease; N18.4 Chronic kidney disease, stage 4 (severe); I10 Essential (primary) hypertension; Z79.01 Long term (current) use of anticoagulants
CPT/HCPCS: 36415; 71010; 71020; 76604; 78582; 80048; 80053; 83880; 84484; 85025; 85379; 85610; 85730; 93005; 93306; 93971; 99284; A9539; A9540; G0378

== ENCOUNTER 2016-08-18 16:24 | Emergency (ER) | payer MEDICARE, BC ==
[2016-08-18 16:45] LABS: Hematocrit 36.9 % (37.0-47.0); Hemoglobin 12.1 gm/dL (12.5-16.0); Mean Cell Volume 88.1 fl (78-100); Mean Corpuscular Hemoglobin 28.9 pg (27-31); Mean Corpuscular Hgb Conc 32.8 g/dl (32-36); Mean Platelet Volume 10.7 fl (6.0-9.5); Neutrophil # 4.4 K/mm3 (1.3-6.0); Platelet Count 381 K/mm3 (150-450); Red Blood Count 4.19 M/mm3 (4.2-5.4); Red Cell Distribution Width 14.2 % (11.5-14.0); White Blood Count 6.4 K/mm3 (4.0-10.5)
--- OUTSIDE RECORDS SUMMARY | 2016-08-18 16:45 | XMS REPORT | Continuity of Care Document ---
:1935 Author Organization [facility] ([facility]) Address [address] [place] [address] Phone [phone] Care Team Providers Name Role Phone Kendall Echols Primary Care Provider [phone] Source Comments This disclosure is being made pursuant to the Care Everywhere program, applicable federal and state laws, and may not contain all informaitonavailable regarding this patient.[facility] ([facility]) Active Allergies and Adverse Reactions Allergen [...] Resolved Date Altered mental status 06/19/2006 01/12/2014 Immunizations Name Dates Previously Given Next Due [...]
[2016-08-18 16:54] LABS: Prothrombin Time (Patient) 32.5 Seconds (9.4-11.4)
[2016-08-18 16:57] LABS: INR 3.13 INR (0.90-1.10)
[2016-08-18 17:02] LABS: ALT 10 U/L (19-67); AST 15 U/L (0-48); Albumin * 3.3 gm/dl (3.4-5.0); Alkaline Phosphatase * 133 U/L (50-170); BUN/Creatinine Ratio 16.4 (9.0-21.6); Bilirubin, Total 0.2 mg/dL (0.0-1.1); Blood Urea Nitrogen 32 mg/dL (3-23); Ca. Corrected For Albumin 9.8 mg/dL (8.4-10.2); Calcium * 9.6 mg/dL (7.9-10.9); Chloride 103 mmol/L (97-106); Glucose * 152 mg/dL (70-110); Lipase 169 U/L (73-393); Sodium 142 mmol/L (132-142); Total Protein 7.1 gm/dL (6.2-8.2); Troponin I Less than 0.017 ng/ml (0.00-0.10)
[2016-08-18 17:11] LABS: Anion Gap 16.9 mmol/L (6.8-13.8); Carbon Dioxide 26.1 mmol/L (24-32.6)
[2016-08-18] MEDS ORDERED: DIATRIZOATE MEGLU/DIATRIZO SOD 30 ML BTL ONE (17:20)
[2016-08-18] MEDS ORDERED: MORPHINE SULFATE 2 MG/ML DISP.SYRIN ONE (17:25)
[2016-08-18] MEDS ORDERED: ONDANSETRON HCL/PF 2 MG/ML VIAL ONE (17:25)
--- NOTE | 2016-08-18 17:28 | ERNOTE ---
Abdominal HPI - Narrative Date of Service: 08/18/16 - General Chief Complaint: Abdominal Pain Time Seen by Provider: 08/18/16 16:28 Source: patient Exam Limitations: no limitations - Immun/Allergies/Home Medications Immunizatons: IMMUNIZATION HX Immunizations Up to Date Yes History of Influenza Vaccine Yes Hx Pneumococcal Vaccination Yes Allergies/Adverse Reactions: Allergies adhesive tape Adverse Reaction (Mild, Verified 08/18/16 16:34) Itching Home Medications: HOME MEDICATIONS PARoxetine HCL [Paxil] 40 mg PO DAILY 07/16/12 [Last Taken 04/24/16 08:00] Simvastatin [Zocor] 40 mg PO DAILY 07/16/12 [Last Taken 04/24/16 08:00] Beta-Carotene(A) W-C , E/Min [Ocuvite] 1 tab PO BID 11/08/13 [Last Taken 08:00] Cyanocobalamin (Vitamin B-12) [B-12] 1,000 mcg PO QAM 12/23/14 [Last Taken 04/24 08:00] Metoprolol Tartrate [Lopressor] 200 mg PO BIDWM 12/23/14 [Last Taken 04/24/16 08 :00] Omeprazole 20 mg PO DAILY 04/16/16 [Last Taken 04/24/16 08:00] Albuterol Sulfate [Proair Respiclick] 90 mcg IH Q4H PRN 07/10/16 [Last Taken Unknown] Aspirin [Aspirin Chewable] 81 mg PO QAM 07/11/16 [Last Taken Unknown] Calcium Carbonate/Vitamin D3 [Calcium 600-Vit D3 800 Tablet] 1 each PO BID 07/11 [Last Taken Unknown] metFORMIN HCL [Glucophage] 500 mg PO BIDWM 07/11/16 [Last Taken Unknown] Warfarin Sodium [Coumadin] 2.5 mg PO DAILY@1700 tablet 07/12/16 [Last Taken Unknown] HYDROcodone/ACETAMINOPHEN [Hydrocodon-Acetaminophn 10-325] 1 tab PO Q6H PRN 08/30 [Last Taken Unknown] - History of Present Illness Narrative: Patient presents to the ED for abdominal pain. She thinks she is constipated and has not had a bowel movement in 4 days. No vomiting but has been having abdominal pain upper abdomen and mid abdomen, mostly left side. Pain waxes and wanes but can be severe at times. Cramping pain. Has not seen anyone else for this. Pain mostly left upper abdomen. No fever. She denies acute CP but has had some left sided rib pain since a fall that is not related to her abdominal pain. No acute SOB. No blood in stool. Timing: other - fluctuating intensity Quality: moderate, cramping Activities at Onset: none Modifying Factors - (Improves): Present: other - nothing Modifying Factors - (Worsens): Present: other - palpation Associated Symptoms: Absent: diaphoresis, fever/chills, vomiting, swelling/mass in abdomen Prior Abdominal Problems: Absent: similar symptoms Prior Treatment: Present: recently hospitalized Review of Systems - Review of Systems Constitutional: Absent: fever ENT: Absent: sore throat Respiratory: Present: See HPI Cardiology: Present: See HPI Gastrointestinal/Abdominal: Present: See HPI Genitourinary: Absent: dysuria Musculoskeletal: Present: back pain Skin: Absent: rash Neurological: Present: other - no acute unilateral weakness All Other Systems: All systems neg except as marked - Patient's Past Medical History Patient History - Medical: Arthritis, Diabetes Type 2, GERD, Other Patient History - Cardiac/Respiratory: Atrial Fibrillation, Coronary Heart Disease, COPD, Hypertension, Hyperlipidemia, TIA Patient History - Cancer: No Hx of Cancer Patient History - Surgical Procedures: Appendectomy, Back Surgery, Cardiac stent , Hysterectomy Patient History - Other: None - Family History Father Family History - Medical: Family History - Cardiac/Respiratory: CHF Family History - Cancer: Colon Mother Family History - Medical: Family History - Cardiac/Respiratory: No pertinent hx Family History - Cancer: Colon Children Family History - Medical: Diabetes Type 2 Family History - Cardiac/Respiratory: No pertinent hx Family History - Cancer: No pertinent family hx - Social History Living Situations: home Abuse History: No History of abuse Psych History: No pertinent hx Does anyone smoke in the home?: No Alcohol Use: none Drug Use: none - Immunizations Immunizations Up to Date: Yes Hx Pneumococcal Vaccination: Yes History of Influenza Vaccine: Yes Physical Exam - Physical Exam General Appearance: Present: alert, no apparent distress Eye Exam: Normal inspection: bilateral, PERRL: bilateral Ears, Nose, Throat: Present: normal ENT inspection Neck: Present: normal inspection Respiratory: Present: no respiratory distress, normal breath sounds, no accessory muscle use, lungs clear Cardiovascular/Chest: Present: regular rate, rhythm Gastrointestinal/Abdominal: Present: normal bowel sounds, soft, no organomegaly , tenderness, other - [place] moderate LUQ and mid abdomen. No peritoneal signs. No guarding or rebound. No masses.. Absent: guarding, rebound Back Exam: Absent: CVA tenderness (R), CVA tenderness (L) Extremity Exam: Present: other - has known ankle Fx, not currently wearing boot as she states she doesn't need to when in bed Neurological Exam: Present: alert, other - no acute unilateral focal motor or sensory deficits. Skin Exam: Absent: skin rash ED Progress - Results and Orders Patient's Lab Results:: I have reviewed the patient's lab results. - Vital Signs Patient's Vital Signs:: I have reviewed the patient's vital signs. Vital Signs: Vital Signs 08/18/16 08/18/16 16:28 17:12 Temperature 36.2 C L Pulse Rate 79 78 Respiratory 18 17 Rate Blood Pressure 133/72 127/65 O2 Sat by Pulse 90 90 Oximetry - EKG EKG: NSR EKG read: Interp. by me EKG Comments: NSR rate 75. Non-specific ST/T wave changes, no STEMI. - X-Ray X-Ray #1 X-Ray: abdomen Interpretation: Reviewed by me X-ray Comments: Constipation, No obstruction X-Ray #2 X-Ray: chest Interpretation: Interp. by me X-ray Comments: Cardiomegaly, - Progress/Reassessment Chief Complaint: Abdominal Pain - Transfer of Care Physician Sign Out: Ronal Christiansen Receiving Physician: Renuka Chan Pending Results: CT/MRI results Expected Disposition: Discharge Departure - Departure Clinical Impression: Abdominal pain Condition: Stable
[2016-08-18] MEDS ORDERED: DIATRIZOATE MEGLU/DIATRIZO SOD 30 ML BTL PO ONE (17:36)
[2016-08-18] MEDS ORDERED: MORPHINE SULFATE 2 MG/ML DISP.SYRIN IV ONE (17:36)
[2016-08-18] MEDS ORDERED: ONDANSETRON HCL/PF 2 MG/ML VIAL IV ONE (17:36)
[2016-08-18 22:24] VITALS: BP 129/63
== END 2016-08-18 22:00 | disposition home or self-care (01) ==
LOC: ER 16:24
DX: K59.00 Constipation, unspecified (principal); E11.9 Type 2 diabetes mellitus without complications; Z86.73 Personal history of transient ischemic attack (TIA), and cerebral infarction without residual deficits; E78.5 Hyperlipidemia, unspecified; K21.9 Gastro-esophageal reflux disease without esophagitis; I10 Essential (primary) hypertension; I48.91 Unspecified atrial fibrillation; Z79.01 Long term (current) use of anticoagulants; I25.2 Old myocardial infarction

== ENCOUNTER 2018-07-16 08:23 | Observation (INO) ==
[2018-07-16 08:52] LABS: Hemoglobin 12.4 gm/dL (12.5-16.0); Mean Cell Volume 96.2 fl (78-100); Mean Corpuscular Hemoglobin 31.4 pg (27-31); Mean Corpuscular Hgb Conc 32.6 g/dl (32-36); Mean Platelet Volume 11.3 fl (8-12.5); Neutrophil # 5.1 K/mm3 (1.3-6.0); Neutrophil % 68.8 % (42-75.0); Platelet Count 301 K/mm3 (150-450); Red Blood Count 3.95 M/mm3 (4.2-5.4); Red Cell Distribution Width 12.9 % (11.5-14.0); White Blood Count 7.4 K/mm3 (4.0-10.5)
[2018-07-16 09:08] LABS: Albumin * 3.5 gm/dl (3.4-5.0); Anion Gap 17.7 mmol/L (6.8-13.8); BUN/Creatinine Ratio 13.4 (9.0-21.6); Bilirubin, Total 0.3 mg/dL (0.0-1.1); Ca. Corrected For Albumin 9.7 mg/dL (8.4-10.2); Calcium * 9.6 mg/dL (7.9-10.9); Carbon Dioxide 22.5 mmol/L (24-32.6); Potassium 4.2 mmol/L (3.4-4.6); Total Protein 6.8 gm/dL (6.2-8.2)
[2018-07-16 09:09] LABS: Prothrombin Time (Patient) 51.6 Seconds (9.1-10.7)
[2018-07-16] MEDS ORDERED: NORMAL SALINE 500 ML IV PRN (09:11)
[2018-07-16 09:13] LABS: INR 5.57 INR (0.92-1.08)
[2018-07-16 09:13] LABS: Urine Bilirubin Negative (NEGATIVE); Urine Blood 25 /ul (NEGATIVE); Urine Ketone Negative (NEGATIVE); Urine Protein 15 mg/dL (NEGATIVE); Urine Urobilinogen Normal (NORMAL)
[2018-07-16 09:19] LABS: Urine Appearance Slightly Cloudy (CLEAR); Urine Bacteria 3+; Urine Color Yellow; Urine Nitrite Positive (NEGATIVE); Urine RBC 0-5 /hpf (0-5)
--- NOTE | 2018-07-16 09:55 | ERNOTE ---
Dizziness ER Record Date of Service: 07/16/18 Presenting Symptoms: dizziness, weakness Time Seen by Provider: 07/16/18 08:35 Exam Limitations: no limitations Immunizations: IMMUNIZATION HX Immunizations Up to Date Yes History of Influenza Vaccine Yes Hx Pneumococcal Vaccination Yes Allergies/Adverse Reactions: Allergies Allergy/AdvReac Type Severity Reaction Status Date / Time adhesive tape AdvReac Mild Itching Verified 07/16/18 08:33 Home Medications: HOME MEDICATIONS Beta-Carotene(A) W-C , E/Min [Ocuvite] 1 tab PO BID 11/08/13 [Last Taken 04/24/16 08:00] Albuterol Sulfate [Proair Respiclick] 90 mcg IH Q4H PRN 07/10/16 [Last Taken Unknown] blood sugar diagnostic strips See Dose Instructions .ROUTE .MEDSUPPLY #20 ea 11/21/17 [Last Taken Unknown] nitroglycerin 0.4 mg sublingual tablet 0.4 mg SL Q5-15M PRN 11/21/17 [Last Taken Unknown] warfarin 5 mg tablet 5 mg PO QTUTHSASU tab 11/21/17 [Last Taken Unknown] warfarin 2 mg tablet 2 mg PO 4XW #60 tab 01/01/18 [Last Taken Unknown] warfarin 3 mg tablet 3 mg PO QMWF #60 tab 01/01/18 [Last Taken Unknown] blood sugar diagnostic strips See Dose Instructions .ROUTE .MEDSUPPLY #100 ea 01/04/18 [Last Taken Unknown] gemfibrozil 600 mg tablet 600 mg PO BID #180 tab 02/26/18 [Last Taken Unknown] metoprolol tartrate 100 mg tablet 200 mg PO BIDWM #360 tab 02/26/18 [Last Taken Unknown] paroxetine 40 mg tablet 40 mg PO DAILY #90 tab 02/26/18 [Last Taken Unknown] simvastatin 40 mg tablet 40 mg PO DAILY #90 tab 02/26/18 [Last Taken Unknown] vit C 250 mg-E 200 unit-zinc 40 mg-copper 1 rm-foerol-wzprpz capsule 1 tab PO BID #180 cap 02/26/18 [Last Taken Unknown] cyanocobalamin (vit B-12) 1,000 mcg tablet 1,000 mcg PO QAM #90 tab 03/13/18 [Last Taken Unknown] oxybutynin chloride 5 mg tablet 2.5 mg PO BID #90 tab 05/08/18 [Last Taken Unknown] aspirin 81 mg tablet,delayed release See Rx Instructions .ROUTE .COMPLEX #30 tablet 06/07/18 [Last Taken Unknown] omeprazole 40 mg capsule,delayed release See Rx Instructions .ROUTE .COMPLEX #30 capsule 06/07/18 [Last Taken Unknown] - History of Present Illness Narrative: patient sent from dr zaidi office with ongoing weekness , worse in last 4-5 days Timing and Duration: gradual onset Noted on awakening:: No Severity: max: moderate Sense of movement: Present: spinning, vague Fainted/near fainted while:: Present: standing Decreased ability to stand/walk:: Present: weak, difficult, off balance Usually:: Present: walks w/o assistance Modifying Factors - (Improves): Reports: nothing Modifying Factors - (Worsens): Reports: nothing Prior Treament: Reports: recently seen, treated by physician Review of Systems - Review of Systems Constitutional: Present: See HPI, fever, chills, weakness, fatigue, malaise EYE: Present: no symptoms reported ENT: Present: no symptoms reported Respiratory: Present: no symptoms reported Cardiology: Present: no symptoms reported Gastrointestinal/Abdominal: Present: no symptoms reported Genitourinary: Present: See HPI, frequency, pain, dysuria Musculoskeletal: Present: no symptoms reported Skin: Present: no symptoms reported Neurological: Present: no symptoms reported Endocrine: Present: no symptoms reported Hematologic/Lymphatic: Present: no symptoms reported Psych: Present: no symptoms reported Medical History (Last Reviewed 07/16/18 @ 08:37 by Desi Grajeda RN) Seizures (Chronic) Onset Date: ~2006 [place] Osteoarthritis (Chronic) Onset Date: Unknown Mild concentric left ventricular hypertrophy (Chronic) Onset Date: ~07/24/16 EF 58%, diastolic dysfunction, mild TR, RVSP 64 mm Hg, mild AR, Echo, [facility], 07/11/16 Hyperthyroidism (Chronic) Onset Date: Unknown Hypertension (Chronic) Onset Date: Unknown Hyperlipemia (Chronic) Onset Date: Unknown GERD (gastroesophageal reflux disease) (Chronic) Onset Date: Unknown Heterozygous factor V Leiden mutation (Chronic) Onset Date: Unknown Diabetes mellitus type I, controlled (Chronic) Onset Date: ~1999 Depression (Chronic) Onset Date: ~2000 COPD (chronic obstructive pulmonary disease) (Chronic) Onset Date: Unknown Chronic kidney disease (Chronic) Onset Date: Unknown CAD (coronary artery disease) (Chronic) Onset Date: Unknown B12 deficiency (Chronic) Onset Date: ~2006 Atrial fibrillation (Chronic) Onset Date: Unknown Anxiety disorder (Chronic) Onset Date: ~2000 Wears glasses Closed wedge compression fracture of fifth thoracic vertebra Onset Date: Unknown TIA (transient ischemic attack) Onset Date: ~1989 H/O myocardial perfusion scan Onset Date: ~05/01/18 [facility]- lexiscan- EF 81% no wall motion abnormality, transient ischemic dilatation 1.11. Dr. Laura GONZALEZ Surgical History: Surgical History (Last Reviewed 07/16/18 @ 08:37 by Desi Grajeda RN) Fusion of lumbar spine Onset Date: ~2004 H/O bilateral cataract extraction Onset Date: ~01/09/06 12/12/05 left; 01/09/06 right H/O cardiac catheterization Onset Date: ~06/2017, 2001, 06/2017- [facility] left heart cath H/O cystoscopy Onset Date: ~08/08/11 [place] H/O esophagogastroduodenoscopy Onset Date: ~08/03/031999 chronic inflammation, hyperplastic polyp in stomach. 2003 [facility]- mild inflammation. H/O heart artery stent Onset Date: ~2000 [facility] H/O kyphoplasty Onset Date: ~01/21/15 [facility] H/O: hysterectomy Onset Date: ~1989 History of appendectomy Onset Date: ~1952 History of carpal tunnel release Onset Date: ~01/09/13 07/18/12- right; 01/09/13 left History of stress test Onset Date: ~05/28/17 [facility]- fixed decreased activity involving the anterior wall, extends into the anterior half of septum and lateral well- suggesting fixed ischemia; no definable reversible ischemia; normal cardiac wall motion. Hx of colonoscopy Onset Date: ~10/16/10 [facility] 2005 benign tissue consistent w/ mucosal polyp, 2006 normal exam, 2000 Tinguely-scattered sigmoid diverticulosis. Previous back surgery Onset Date: ~05/2015 Lumbar; Dr. Lawrence; s/p fractures S/P cubital tunnel release Onset Date: ~01/09/13 07/18/12 [facility], right, 12/27 left S/P epidural steroid injection Onset Date: ~02/04/15 06/20/04, 02/04/15 L4-5, L2-3 Family History: Family History (Last Reviewed 07/16/18 @ 08:37 by Desi Grajeda RN) Father , Age 83 CHF (congestive heart failure) Mother , Age 81 Hypertension Colon cancer Varicose veins of lower extremity Sister , Age 80 Pancreatic cancer Sister , Age 78 Heart failure Social History: Preferred Language [place] Smoking Status Never smoker Abuse History No History of abuse Psych History No pertinent hx Alcohol Use none Drug Use none (Last Updated 04/29/18 @ 11:28 by Kendall Echols MD) No Social History Section defined Physical Exam - Physical Exam General Appearance: Present: moderate distress Head Exam: Present: normal inspection, no evidence of injury Eye Exam: Normal inspection: bilateral, PERRL: bilateral, EOMI: bilateral Ears, Nose, Throat: Present: normal ENT inspection, normal pharynx Neck: Present: normal inspection, nontender Respiratory: Present: no respiratory distress, normal breath sounds, no accessory muscle use, chest nontender, lungs clear Cardiovascular/Chest: Present: regular rate, rhythm, no murmur, normal peripheral pulses Gastrointestinal/Abdominal: Present: normal bowel sounds, nontender, nondistended, soft, no organomegaly Back Exam: Present: normal inspection, normal range of motion, no CVA tenderness, no vertebral tenderness Extremity Exam: Present: normal inspection, non-tender, normal range of motion, no edema Neurological Exam: Present: alert, oriented, normal mood/affect, no motor/sensory deficits Skin Exam: Present: normal color, warm/dry Lymphatic Exam: Present: no adenopathy Progress - Date and Time Seen: Date and Time: 07/16/18 10:38 condition improved - Results and Orders Patient's Lab Results:: I have reviewed the patient's lab results. - Vital Signs Patient's Vital Signs:: I have reviewed the patient's vital signs. Vital Signs: Vital Signs 07/16/18 08:30 07/16/18 08:33 07/16/18 09:12 Temperature 36.7 C Pulse Rate 72 72 74 Respiratory Rate 12 Blood Pressure 107/57 O2 Sat by Pulse Oximetry 97 - Progress/Reassessment Chief Complaint: Dizziness Progress:: Improved - Transfer of Care Expected Disposition: Discharge Plan - Plan Plan: case discussed with dr reina, accepted to observaation Departure Clinical Impression: Urinary tract infection, Hypotension - Departure Disposition: Still a patient Condition: Serious
[2018-07-16] MEDS ORDERED: cefTRIAXone SODIUM 1,000 MG/100 ML BAG IV ONE (10:11)
[2018-07-16] MEDS ORDERED: NORMAL SALINE 1,000 ML IV ONE (10:41)
[2018-07-16] MEDS ORDERED: ALBUTEROL SULFATE 2.5 MG/0.5 ML VIAL.NEB IH PRN (13:01)
[2018-07-16] MEDS: METOPROLOL TARTRATE 100 MG TABLET PO SCH (18:16)
[2018-07-16] MEDS: ASPIRIN 81 MG TAB.CHEW PO SCH (18:16)
[2018-07-16] MEDS: PANTOPRAZOLE SODIUM 40 MG TABLET.EC PO SCH (18:39)
--- NOTE | 2018-07-16 18:49 | HP ---
Chief Complaint - Chief Complaint Date of Service: 07/16/18 Time of Service: 18:48 Chief Complaint: Dizziness, weakness History of Present Illness: 82-year-old female presented to Dr. Echols's office this afternoon for checkup. While there she was found to be slightly dizzy and weak. Patient was also found to be hypotensive so Dr. Echols sent her to the ER for evaluation. While there she was found to have a UTI. She was started on Rocephin, urine culture sent. Initial lactic acid was 2.3. She has stage V kidney failure, recent shunt placed in her left forearm for likely dialysis. She is a diabetic, fairly well controlled with last A1c being 7.2. Lastly she was also found to have an INR of 5.8, she is on Coumadin for A. fib. Her vital signs were stable in the ER. She was admitted to the floor for observation for treatment of her UTI as well as to monitor her INR. While being evaluated patient denied any urinary tract symptoms including no urgency, frequency, burning with urination. Medical History (Last Reviewed 07/16/18 @ 11:03 by Myrna Clark RN) Seizures (Chronic) Onset Date: ~2006 [place] Osteoarthritis (Chronic) Onset Date: Unknown Mild concentric left ventricular hypertrophy (Chronic) Onset Date: ~07/24/16 EF 58%, diastolic dysfunction, mild TR, RVSP 64 mm Hg, mild AR, Echo, FM, 07/11/16 Hyperthyroidism (Chronic) Onset Date: Unknown Hypertension (Chronic) Onset Date: Unknown Hyperlipemia (Chronic) Onset Date: Unknown GERD (gastroesophageal reflux disease) (Chronic) Onset Date: Unknown Heterozygous factor V Leiden mutation (Chronic) Onset Date: Unknown Diabetes mellitus type I, controlled (Chronic) Onset Date: ~1999 Depression (Chronic) Onset Date: ~2000 COPD (chronic obstructive pulmonary disease) (Chronic) Onset Date: Unknown Chronic kidney disease (Chronic) Onset Date: Unknown CAD (coronary artery disease) (Chronic) Onset Date: Unknown B12 deficiency (Chronic) Onset Date: ~2006 Atrial fibrillation (Chronic) Onset Date: Unknown Anxiety disorder (Chronic) Onset Date: ~2000 Wears glasses Closed wedge compression fracture of fifth thoracic vertebra Onset Date: Unknown TIA (transient ischemic attack) Onset Date: ~1989 H/O myocardial perfusion scan Onset Date: ~05/01/18 [facility]- lexiscan- EF 81% no wall motion abnormality, transient ischemic dilatation 1.11. Dr. Laura GONZALEZ Surgical History: Surgical History (Last Reviewed 07/16/18 @ 11:03 by Myrna Clark RN) Fusion of lumbar spine Onset Date: ~2004 H/O bilateral cataract extraction Onset Date: ~01/09/06 12/12/05 left; 01/09/06 right H/O cardiac catheterization Onset Date: ~06/2017, 2001, 06/2017- [facility] left heart cath H/O cystoscopy Onset Date: ~08/08/11 [facility] H/O esophagogastroduodenoscopy Onset Date: ~08/03/031999 chronic inflammation, hyperplastic polyp in stomach. 2003 [facility]- mild inflammation. H/O heart artery stent Onset Date: ~2000 [facility] H/O kyphoplasty Onset Date: ~01/21/15 [facility] H/O: hysterectomy Onset Date: ~1989 History of appendectomy Onset Date: ~1952 History of carpal tunnel release Onset Date: ~01/09/13 07/18/12- right; 01/09/13 left History of stress test Onset Date: ~05/28/17 [facility]- fixed decreased activity involving the anterior wall, extends into the anterior half of septum and lateral well- suggesting fixed ischemia; no definable reversible ischemia; normal cardiac wall motion. Hx of colonoscopy Onset Date: ~10/16/10 [facility] 2004 benign tissue consistent w/ mucosal polyp, 2006 normal exam, 2000 Tinguely-scattered sigmoid diverticulosis. Previous back surgery Onset Date: ~05/2015 Lumbar; Dr. Lawrence; s/p fractures S/P cubital tunnel release Onset Date: ~01/09/13 07/18/12 [facility], right, 12/27 left S/P epidural steroid injection Onset Date: ~02/04/15 06/20/04, 02/04/15 L4-5, L2-3 Family History: Family History (Last Reviewed 07/16/18 @ 11:03 by Myrna Clark RN) Father , Age 83 CHF (congestive heart failure) Mother , Age 81 Hypertension Colon cancer Varicose veins of lower extremity Sister , Age 80 Pancreatic cancer Sister , Age 78 Heart failure Social History: Patient Lives/Resources Home Utilized Occupation Retired Preferred Language French Do you have any judaism or Yes: Presbetarian cultural preference? Smoking Status Former smoker Have you smoked in the past 12 No months Abuse History No History of abuse Psych History No pertinent hx Alcohol Use none Drug Use none (Last Updated 04/29/18 @ 11:28 by Kendall Echols MD) No Social History Section defined Review Of Systems (GEN) - Review of Systems Generalized/Overall Review: Present: Weakness. Absent: Chills, Fever EENTM: Present: No Symptoms Reported Respiratory: Absent: Cough, Shortness of Breath Cardiac: Absent: Chest Pain, Edema, Palpitations Abdominal: Absent: Nausea, Vomiting Genitourinary: Absent: Burning, Itching, Urgency, Frequency Musculoskeletal: Present: No Symptoms Reported Neurological: Present: No Symptoms Reported Skin: Present: No Symptoms Reported Immunizations: IMMUNIZATION HX Immunizations Up to Date Yes History of Influenza Vaccine Yes Hx Pneumococcal Vaccination Yes Allergies/Adverse Reactions: Allergies Allergy/AdvReac Type Severity Reaction Status Date / Time adhesive tape AdvReac Mild Itching Verified 07/16/18 11:03 Home Medications: HOME MEDICATIONS Beta-Carotene(A) W-C , E/Min [Ocuvite] 1 tab PO BID 11/08/13 [Last Taken 04/24/16 08:00] blood sugar diagnostic strips See Dose Instructions .ROUTE .MEDSUPPLY #20 ea 11/21/17 [Last Taken Unknown] nitroglycerin 0.4 mg sublingual tablet 0.4 mg SL Q5-15M PRN 11/21/17 [Last Taken Unknown] warfarin 2 mg tablet 2 mg PO 4XW #60 tab 01/01/18 [Last Taken Unknown] warfarin 3 mg tablet 3 mg PO QMWF #60 tab 01/01/18 [Last Taken Unknown] gemfibrozil 600 mg tablet 600 mg PO BID #180 tab 02/26/18 [Last Taken Unknown] metoprolol tartrate 100 mg tablet 200 mg PO BIDWM #360 tab 02/26/18 [Last Taken Unknown] paroxetine 40 mg tablet 40 mg PO DAILY #90 tab 02/26/18 [Last Taken Unknown] simvastatin 40 mg tablet 40 mg PO DAILY #90 tab 02/26/18 [Last Taken Unknown] vit C 250 mg-E 200 unit-zinc 40 mg-copper 1 [id number] capsule 1 tab PO BID #180 cap 02/26/18 [Last Taken Unknown] cyanocobalamin (vit B-12) 1,000 mcg tablet 1,000 mcg PO QAM #90 tab 03/13/18 [Last Taken Unknown] oxybutynin chloride 5 mg tablet 2.5 mg PO BID #90 tab 05/08/18 [Last Taken Unknown] aspirin 81 mg tablet,delayed release See Rx Instructions .ROUTE .COMPLEX #30 tablet 06/07/18 [Last Taken Unknown] omeprazole 40 mg capsule,delayed release See Rx Instructions .ROUTE .COMPLEX #30 capsule 06/07/18 [Last Taken Unknown] Exam - Exam Vital Signs: Vital Signs - Last Taken Temp 36.8 C 07/16/18 15:03 Pulse 75 07/16/18 18:16 Resp 16 07/16/18 15:03 BP 118/59 07/16/18 18:16 Pulse Ox 96 07/16/18 15:03 Constitutional: Present: Alert, Oriented x3, No distress ENT Exam: Absent: nasal congestion, nasal drainage Neck: Present: non-tender, supple Cardiovascular/Chest: Present: normal peripheral pulses, irregularly irregular. Absent: systolic murmur Abdomen: Present: Normal bowel sounds, soft, nontender /Rectal: Present: Exam deferred Skin Exam: Present: normal color, warm/dry Appearance: Present: appropriate appearance, appropriate insight Eye contact: Present: cooperative, good eye contact Thoughts: Present: normal thought pattern, normal mood /affect Diagnostic Studies: Abnormal Lab Results 07/16/18 07/16/18 07/16/18 Range/Units 08:45 08:45 08:45 RBC 3.95 L (4.2-5.4) M/mm3 Hgb 12.4 L (12.5-16.0) gm/dL MCH 31.4 H (27-31) pg PT 51.6 H (9.1-10.7) Seconds INR (Anticoag Therapy) 5.57 H* (0.92-1.08) INR Carbon Dioxide 22.5 L (24-32.6) mmol/L Anion Gap 17.7 H (6.8-13.8) mmol/L BUN 39 H (3-23) mg/dL Creatinine 2.91 H (0.4-1.4) mg/dL Est GFR (Non-Af Amer) 16 L (60-130) mL/min Random Glucose 133 H (70-110) mg/dL Lactic Acid, Venous (0.4-2.0) mmol/L ALT 13 L (19-67) U/L Procalcitonin (0.05-0.50) ng/mL Urine Protein (NEGATIVE) mg/dL Urine Blood (NEGATIVE) /ul Urine Nitrate (NEGATIVE) Ur Leukocyte Esterase (NEGATIVE) /ul Urine WBC (0-5) /hpf Urine Bacteria (NONE) 07/16/18 07/16/18 07/16/18 Range/Units 08:45 08:45 09:09 RBC (4.2-5.4) M/mm3 Hgb (12.5-16.0) gm/dL MCH (27-31) pg PT (9.1-10.7) Seconds INR (Anticoag Therapy) (0.92-1.08) INR Carbon Dioxide (24-32.6) mmol/L Anion Gap (6.8-13.8) mmol/L BUN (3-23) mg/dL Creatinine (0.4-1.4) mg/dL Est GFR (Non-Af Amer) (60-130) mL/min Random Glucose (70-110) mg/dL Lactic Acid, Venous 2.3 H* (0.4-2.0) mmol/L ALT (19-67) U/L Procalcitonin Less than 0.05 L (0.05-0.50) ng/mL Urine Protein 15 H (NEGATIVE) mg/dL Urine Blood 25 H (NEGATIVE) /ul Urine Nitrate Positive H (NEGATIVE) Ur Leukocyte Esterase 75 H (NEGATIVE) /ul Urine WBC 10-25 H (0-5) /hpf Urine Bacteria 3+ H (NONE) Laboratory Results WBC 7.4 K/mm3 (4.0-10.5) 07/16/18 08:45 RBC 3.95 M/mm3 (4.2-5.4) L 07/16/18 08:45 Hgb 12.4 gm/dL (12.5-16.0) L 07/16/18 08:45 Hct 38.0 % (37.0-47.0) 07/16/18 08:45 MCV 96.2 fl (78-100) 07/16/18 08:45 MCH 31.4 pg (27-31) H 07/16/18 08:45 MCHC 32.6 g/dl (32-36) 07/16/18 08:45 RDW 12.9 % (11.5-14.0) 07/16/18 08:45 Plt Count 301 K/mm3 (150-450) 07/16/18 08:45 MPV 11.3 fl (8-12.5) 07/16/18 08:45 Immature Gran % (Auto) 0.30 % (0.001-0.429) 07/16/18 08:45 Immature Gran # (Auto) 0.02 K/mm3 (0.000-0.0310) 07/16/18 08:45 Neutrophils % 68.8 % (42-75.0) 07/16/18 08:45 Lymphocytes % 20.4 % (20-51) 07/16/18 08:45 Monocytes % 8.3 % (0.0-9) 07/16/18 08:45 Eosinophils % 1.8 % (0.0-3.0) 07/16/18 08:45 Basophils % 0.4 % (0.0-1.0) 07/16/18 08:45 Nucleated RBC % 0.0 k/mm3 (0-1) 07/16/18 08:45 Neutrophils # 5.1 K/mm3 (1.3-6.0) 07/16/18 08:45 Lymphocytes # 1.50 k/mm3 (1.5-3.5) 07/16/18 08:45 Monocytes # 0.6 k/mm3 (0.0-1.0) 07/16/18 08:45 Eosinophils # 0.1 k/mm3 (0.0-0.7) 07/16/18 08:45 Absolute Basophils 0.0 k/mm3 (0.0-0.1) 07/16/18 08:45 PT 51.6 Seconds (9.1-10.7) H 07/16/18 08:45 INR (Anticoag Therapy) 5.57 INR (0.92-1.08) H* 07/16/18 08:45 Sodium 138 mmol/L (132-142) 07/16/18 08:45 Plasma Sodium 139 mmol/L (130-142) 07/16/18 08:45 Potassium 4.2 mmol/L (3.4-4.6) 07/16/18 08:45 Chloride 102 mmol/L (97-106) 07/16/18 08:45 Carbon Dioxide 22.5 mmol/L (24-32.6) L 07/16/18 08:45 Anion Gap 17.7 mmol/L (6.8-13.8) H 07/16/18 08:45 BUN 39 mg/dL (3-23) H 07/16/18 08:45 Creatinine 2.91 mg/dL (0.4-1.4) H 07/16/18 08:45 Est GFR (Non-Af Amer) 16 mL/min (60-130) L 07/16/18 08:45 BUN/Creatinine Ratio 13.4 (9.0-21.6) 07/16/18 08:45 Random Glucose 133 mg/dL (70-110) H 07/16/18 08:45 Lactic Acid, Venous 1.7 mmol/L (0.4-2.0) 07/16/18 12:20 Calcium 9.6 mg/dL (7.9-10.9) 07/16/18 08:45 Calcium Adj for Albumin 9.7 mg/dL (8.4-10.2) 07/16/18 08:45 Total Bilirubin 0.3 mg/dL (0.0-1.1) 07/16/18 08:45 AST 19 U/L (0-48) 07/16/18 08:45 ALT 13 U/L (19-67) L 07/16/18 08:45 Alkaline Phosphatase 93 U/L (50-170) 07/16/18 08:45 C-Reactive Prot, Quant Less than 0.2 mg/dL (0.0-0.9) 07/16/18 08:45 Total Protein 6.8 gm/dL (6.2-8.2) 07/16/18 08:45 Albumin 3.5 gm/dl (3.4-5.0) 07/16/18 08:45 Procalcitonin Less than 0.05 ng/mL (0.05-0.50) L 07/16/18 08:45 Urine Color Yellow 07/16/18 09:09 Urine Appearance Slightly cloudy (CLEAR) 07/16/18 09:09 Urine pH 6.0 pH (5.0-7.0) 07/16/18 09:09 Ur Specific [place] 1.020 SP.GR. (1.005-1.010) 07/16/18 09:09 Urine Protein 15 mg/dL (NEGATIVE) H 07/16/18 09:09 Urine Glucose (UA) Negative mg/dL (NEGATIVE) 07/16/18 09:09 Urine Ketones Negative mg/dL (NEGATIVE) 07/16/18 09:09 Urine Blood 25 /ul (NEGATIVE) H 07/16/18 09:09 Urine Nitrate Positive (NEGATIVE) H 07/16/18 09:09 Urine Bilirubin Negative mg/dl (NEGATIVE) 07/16/18 09:09 Prot Sulfosalicylic Acd 1+ mg/dL (0) 07/16/18 09:09 Urine Urobilinogen Normal EU/dl (NORMAL) 07/16/18 09:09 Ur Leukocyte Esterase 75 /ul (NEGATIVE) H 07/16/18 09:09 Urine RBC 0-5 /hpf (0-5) 07/16/18 09:09 Urine WBC 10-25 /hpf (0-5) H 07/16/18 09:09 Ur Epithelial Cells None seen /hpf (0-5) 07/16/18 09:09 Urine Bacteria 3+ (NONE) H 07/16/18 09:09 Urine Culture Comments Culture to follow 07/16/18 09:09 Assessment/Plan - Narrative Narrative: Patient admitted for UTI, will continue Rocephin while in the hospital and transition to oral medication upon discharge. Lactic acid has returned to normal. Awaiting urine culture. Hypotension has resolved since being here, discussed this with Dr. Echols who thinks her beta-caesar was dosed slightly too high and so decrease metoprolol tartrate from 200 mg to 100 mg BID. We will continue to monitor her vital signs while here. Patient states that she is already feeling much better. Supratherapeutic INR, will hold her warfarin at this time. Will repeat INR is in the a.m. We will continue to monitor and restart as appropriate. Diabetes, sliding scale insulin ordered. Will check sugars before meals at bedtime. Consistent carb diet ordered. Stage V kidney disease, will continue to monitor. GFR currently at 16. If it drops much more patient will likely need dialysis. Currently electrolytes are within normal limits. We will resume chronic medications, no DVT prophylaxis needed at this time as patient has supratherapeutic INR. Nurse will call with any questions or concerns. - Assessment/Plan (1) Urinary tract infection Problem: Acute (2) Hypotension Problem: Acute (3) Type I diabetes mellitus Problem: Acute (4) Atrial fibrillation Problem: Chronic (5) Weakness Problem: Acute (6) Diabetes mellitus Problem: Chronic Qualifiers: Diabetes mellitus type: type 2 Diabetes mellitus nursing home insulin use: without nursing home use Diabetes mellitus complication status: with kidney complications Diabetes mellitus complication detail: with chronic kidney disease Chronic kidney disease stage: stage 4 (severe) Qualified Code(s): E11.22 - Type 2 diabetes mellitus with diabetic chronic kidney disease; N18.4 - Chronic kidney disease, stage 4 (severe)
[2018-07-16] MEDS ORDERED: SIMVASTATIN 40 MG TABLET PO SCH (21:00)
[2018-07-16 21:44] LABS: Anion Gap 16.6 mmol/L (6.8-13.8); BUN/Creatinine Ratio 14.2 (9.0-21.6); Carbon Dioxide 22.3 mmol/L (24-32.6); Estimated Creat Clear 12.1; Potassium 3.9 mmol/L (3.4-4.6)
[2018-07-16] MEDS: INSULIN LISPRO 100 UNITS/ML VIAL SC SCH (21:58)
[2018-07-16] MEDS: OXYBUTYNIN CHLORIDE 5 MG TABLET PO SCH (21:59)
[2018-07-16] MEDS: GEMFIBROZIL 600 MG TABLET PO SCH (22:00)
[2018-07-17 05:54] LABS: Prothrombin Time (Patient) 35.8 Seconds (9.1-10.7)
[2018-07-17 06:05] LABS: INR 3.81 INR (0.92-1.08)
[2018-07-17] MEDS: INSULIN LISPRO 100 UNITS/ML VIAL SC SCH ×2 (06:54→11:36)
[2018-07-17] MEDS: PANTOPRAZOLE SODIUM 40 MG TABLET.EC PO SCH (06:59)
[2018-07-17] MEDS ORDERED: PARoxetine HCL 20 MG TABLET PO SCH (09:00)
[2018-07-17] MEDS: METOPROLOL TARTRATE 100 MG TABLET PO SCH (09:04)
[2018-07-17] MEDS: GEMFIBROZIL 600 MG TABLET PO SCH (09:06)
[2018-07-17] MEDS: OXYBUTYNIN CHLORIDE 5 MG TABLET PO SCH (09:06)
[2018-07-17] MEDS: ASPIRIN 81 MG TAB.CHEW PO SCH (09:06)
--- NOTE | 2018-07-17 11:28 | DS ---
(1) Urinary tract infection Problem: Acute (2) Hypotension Problem: Acute (3) Supratherapeutic INR Problem: Acute (4) Atrial fibrillation Problem: Chronic (5) Type I diabetes mellitus Problem: Acute (6) Weakness Problem: Acute (7) Diabetes mellitus Problem: Chronic Qualifiers: Diabetes mellitus type: type 2 Diabetes mellitus halfway insulin use: without halfway use Diabetes mellitus complication status: with kidney complications Diabetes mellitus complication detail: with chronic kidney disease Chronic kidney disease stage: stage 4 (severe) Qualified Code(s): E11.22 - Type 2 diabetes mellitus with diabetic chronic kidney disease; N18.4 - Chronic kidney disease, stage 4 (severe) (8) Supratherapeutic international normalized ratio (INR) Problem: Acute Description of Stay: 82-year-old female with history of A. fib on Coumadin was admitted to the hospital for hypotension and dizziness. She was found to have a UTI and started on Rocephin. She was given a small bolus due to poor kidney function which resolved her dizziness and hypotension. Since being here her vital signs been stable and her blood pressures have been in the 130s over 80s. She will be discharged home on Keflex for her UTI. Waiting for speciation of the cultures to return. Patient was also found to have supratherapeutic INR at 5.6. Her Coumadin has been held. This morning her INR was down to 3.8. We will continue to hold Coumadin, ambulatory orders in place for an INR repeat check tomorrow morning. Once her INR is back within an appropriate range she can resume the Coumadin. She may need to come back in one more time on Sunday07-19-2018 for a second INR check before she resumes her Coumadin if the brain does not back to an appropriate level tomorrow morning. Patient states understanding to this. She will follow-up with her sales officer as directed. She has stage V kidney disease with a GFR of 16. She is planning on dialysis if her kidney function worsens at all. She has a shunt placed in the left forearm, she is wait for this to mature. Her electrolytes were within normal limits during her stay here. Patient is discharged home on a consistent carb diet. She is given instructions on how to manage her Coumadin as described above. Her metoprolol was decreased from 200 mg twice daily to 100 mg twice daily which I think was likely causing some of her hypotension and dizziness that she was feeling prior to coming to the hospital last few weeks. Again since these changes have been made, her blood pressure has been stable and she is felt well. She is set to follow-up with Dr. Echols in 1 week. Procedures Performed: none Results and Findings: Pending Mircobiology Results 07/16/18 10:25 Blood Blood Culture - Preliminary NO GROWTH 24 HOURS 07/16/18 10:13 Blood Blood Culture - Preliminary NO GROWTH 24 HOURS 07/16/18 08:53 Urine,Catheterized Urine Culture - Preliminary Gram Negative Bacilli Gram Negative Bacilli#2 Lab Pending Results 07/16/18 08:45: WBC 7.4, RBC 3.95 L, Hgb 12.4 L, Hct 38.0, MCV 96.2, MCH 31.4 H, MCHC 32.6, RDW 12.9, Plt Count 301, MPV 11.3, Immature Gran % (Auto) 0.30, Immature Gran # (Auto) 0.02, Neutrophils % 68.8, Lymphocytes % 20.4, Monocytes % 8.3, Eosinophils % 1.8, Basophils % 0.4, Nucleated RBC % 0.0, Neutrophils # 5.1, Lymphocytes # 1.50, Monocytes # 0.6, Eosinophils # 0.1, Absolute Basophils 0.0 07/16/18 08:45: PT 51.6 H, INR (Anticoag Therapy) 5.57 H* 07/16/18 08:45: Sodium 138, Plasma Sodium 139, Potassium 4.2, Chloride 102, Carbon Dioxide 22.5 L, Anion Gap 17.7 H, BUN 39 H, Creatinine 2.91 H, Est GFR (Non-Af Amer) 16 L, BUN/Creatinine Ratio 13.4, Random Glucose 133 H, Calcium 9.6, Calcium Adj for Albumin 9.7, Total Bilirubin 0.3, AST 19, ALT 13 L, Alkaline Phosphatase 93, Total Protein 6.8, Albumin 3.5 07/16/18 08:45: Lactic Acid, Venous 2.3 H* 07/16/18 08:45: Procalcitonin Less than 0.05 L 07/16/18 08:45: C-Reactive Prot, Quant Less than 0.2 07/16/18 09:09: Urine Color Yellow, Urine Appearance Slightly cloudy, Urine pH 6.0, Ur Specific [place] 1.020, Urine Protein 15 H, Urine Glucose (UA) Negative, Urine Ketones Negative, Urine Blood 25 H, Urine Nitrate Positive H, Urine Bilirubin Negative, Prot Sulfosalicylic Acd 1+, Urine Urobilinogen Normal, Ur Leukocyte Esterase 75 H, Urine RBC 0-5, Urine WBC 10-25 H, Ur Epithelial Cells None seen, Urine Bacteria 3+ H, Urine Culture Comments Culture to follow 07/16/18 12:20: Lactic Acid, Venous 1.7 07/16/18 21:35: Sodium 138, Plasma Sodium 139, Potassium 3.9, Chloride 103, Carbon Dioxide 22.3 L, Anion Gap 16.6 H, BUN 37 H, Creatinine 2.61 H, Est GFR (Non-Af Amer) 19 L, BUN/Creatinine Ratio 14.2, Random Glucose 165 H, Calcium 9.0 07/17/18 05:15: PT 35.8 H, INR (Anticoag Therapy) 3.81 H Discharge Location: Home Disposition: Home self-care Condition: Stable Discharge Activity: Activity as tolerated Discharge Diet: Consistent carbs Referrals: Kendall Echols MD [Primary Care Provider] - One Week Additional Patient Instructions (free text): -Please make TCM appointment unless alf discharge. Thank you! Vani @ [phone]. Come to [facility] outpatient lab tomorrow 07/18/18 for INR lab draw. Follow up with Dr Echols on Sunday07/24/18 at 9:00M. Prescriptions (Any new or edited meds): Cephalexin Monohydrate [Keflex] 500 mg PO Q12H #14 cap Complete Home Medications List: Complete Home Medication List: Beta-Carotene(A) W-C , E/Min [Ocuvite] 1 tab PO BID 11/08/13 blood sugar diagnostic strips See Dose Instructions .ROUTE .MEDSUPPLY #20 ea 11/21/17 nitroglycerin 0.4 mg sublingual tablet 0.4 mg SL Q5-15M PRN 11/21/17 gemfibrozil 600 mg tablet 600 mg PO BID #180 tab 02/26/18 metoprolol tartrate 100 mg tablet 200 mg PO BIDWM #360 tab 02/26/18 paroxetine 40 mg tablet 40 mg PO DAILY #90 tab 02/26/18 simvastatin 40 mg tablet 40 mg PO DAILY #90 tab 02/26/18 vit C 250 mg-E 200 unit-zinc 40 mg-copper 1 [id number] capsule 1 tab PO BID #180 cap 02/26/18 cyanocobalamin (vit B-12) 1,000 mcg tablet 1,000 mcg PO QAM #90 tab 03/13/18 oxybutynin chloride 5 mg tablet 2.5 mg PO BID #90 tab 05/08/18 Aspirin [Aspirin EC] 81 mg PO QAM 07/17/18 Cephalexin Monohydrate [Keflex] 500 mg PO Q12H #14 cap 07/17/18 Omeprazole 40 mg PO DAILY 07/17/18 Warfarin Sodium [Coumadin] 2 mg PO SUTUTHSA 07/17/18 Warfarin Sodium [Coumadin] 3 mg PO MOWEFR 07/17/18 Amb Orders for Discharge: Prothrombin Time Time Frame: 1 Day, Location: Laboratory
[2018-07-17 15:39] VITALS: BP 116/55
== END 2018-07-17 16:11 | disposition home or self-care (01) ==
LOC: ER 08:23 → MS 08:23
PROVIDERS: ADMIT Family Medicine; ATTEND Family Medicine
CPT/HCPCS: 36415; 80048; 80053; 81001; 83605; 84145; 85025; 85610; 86140; 87040; 87077; 87086; 87186; 93005; 96361; 96365; 96366; 99285; G0378